=== PATIENT | male | born 1955 | race Caucasian/White ===

== ENCOUNTER 2018-02-24 12:45 | Inpatient (IN) | payer MEDICAID, SELFPAY ==
--- NOTE | 2018-02-24 12:12 | EKG12_ITS ---
Test Reason : Blood Pressure : / mmHG Vent. Rate : 123 BPM Atrial Rate : 123 BPM P-R Int : 148 ms QRS Dur : 136 ms QT Int : 326 ms P-R-T Axes : 007 027 115 degrees QTc Int : 466 ms Sinus tachycardia Non-specific intra-ventricular conduction block Abnormal ECG Confirmed by GADIEL BRO, CARMEN ([id number]), communications editor LYDIA YOUNG ([id number]) on 03/04/2018 1:47:55 PM Referred By: SERVANDO Confirmed By:CARMEN RAMESH MD
--- NOTE | 2018-02-24 13:30 | CT_ITS ---
STUDY: CT BRAIN WITHOUT CONTRAST REASON FOR EXAM: Male, 62 years old. Closed head injury. RADIATION DOSAGE (If Supplied By Facility): CTDIvol = ( 44.99 ) mGy, DLP = ( 711.75 ) mGycm TECHNIQUE: Transaxial CT imaging of the brain was performed without administration of intravenous contrast material. Multiplanar reformations are submitted for interpretation. Individualized dose optimization techniques were used for this CT. COMPARISON: Preliminary report is reviewed. FINDINGS: There is soft tissue emphysema within the soft tissues of the lateral scalp as well as the pterygopalatine fossa. This may be related to facial bone fracture. Normal calvarium. There is mild cerebral atrophy with widening of the extra-axial spaces and ventricular dilatation. Normal white matter tracts of the cerebral hemispheres. Normal basal ganglia and thalami. Normal brainstem. There is mild cerebellar atrophy. There is no intracranial hemorrhage. There are no findings of an acute ischemic infarction. Normal visualized paranasal sinuses. CT/Brain/Head without Contrast IMPRESSION: 1. Chronic involutional changes of the brain. 2. Soft tissue emphysema of the face and scalp may be the result of soft tissue injury or fracture. Electronically Signed: Mary Kay Zuluaga MD at 8:20 EDT , Service support ,
--- NOTE | 2018-02-24 13:30 | RAD_ITS ---
STUDY: X-RAY - PELVIS AND RIGHT HIP REASON FOR EXAM: Right hip pain, fall. TECHNIQUE: Radiological exam, hip, unilateral, with pelvis when performed; 2 or 3 views. COMPARISON: None. FINDINGS: There is vascular calcification. Normal bilateral iliac wings, sacroiliac joints and visualized sacrum. Normal bilateral superior and inferior pubic rami. Normal pubic symphysis. Normal bilateral ischial tuberosities. Normal visualized right femoral head. Normal right acetabulum. Normal right hip joint. RAD/Hip 2-3 Views with Pelvis IMPRESSION: No demonstrated right hip fracture. Electronically Signed: Shane Baker MD at 14:20 EDT Tel , Service support ,
--- NOTE | 2018-02-24 16:10 | CT_ITS ---
STUDY: CT RIGHT HIP WITHOUT CONTRAST REASON FOR EXAM: Male, 62 years old. Right-sided hip pain after injury. RADIATION DOSAGE (If Supplied By Facility): CTDIvol = ( 24.29 ) mGy, DLP = ( 1075.99 ) mGycm TECHNIQUE: Transaxial CT imaging of the hip was performed. Sagittal and coronal images were reconstructed. Individualized dose optimization techniques were used for this CT. COMPARISON: Preliminary report was reviewed. FINDINGS: Normal visualized femur. The right hip joint is within normal limits. Right-sided superior and inferior pubic rami are within normal limits. The visualized right iliac wing and sacrum have a normal appearance. There is grade 1 spondylolisthesis at L5-S1 secondary to spondylolysis of L5. There is narrowing of L5-S1 disc space with vacuum disc phenomenon and eburnation of endplates. There is soft tissue edema involving the right thigh and pelvis possibly secondary to anasarca. There is also abnormal attenuation within the visualized abdominal wall. There also appears to be some edema between the muscles of the thigh. There appears to be ascites within the pelvis. Patient has a Rey catheter. There are prostatic calcifications. There are colonic diverticula. CT/Extremity Lower without Contra IMPRESSION: 1. No CT evidence of acute fracture of the right hip. 2. Diffuse soft tissue edema probably related to anasarca. 3. Ascites. 4. Grade 1 spondylolisthesis at L5-S1 secondary to spondylolysis of L5 with degenerative disc disease at L5-S1. Electronically Signed: Mar yKay Zuluaga MD at 7:38 EDT , Service support ,
--- NOTE | 2018-02-24 17:41 | DT_ITS ---
This patient was seen during an EMR downtime February 21, 2018 - February 28, 2018. This patient may have a combination of paper and electronic documentation or all paper documentation. All documentation is viewable within the e-chart portion of [facility] for each patient visit.
--- NOTE | 2018-02-25 11:47 | ECHOD_ITS ---
Reason For Study: CHF Procedure This was a 2D Doppler, Color Flow transthoracic echocardiogram. Exam performed portable in patient room. Left Ventricle Moderately dilated left ventricle. The estimated ejection fraction is 15 %. Severe segmental systolic dysfunction (see wall motion). Transmitral diastolic flow velocities suggest severe (stage 3) diastolic dysfunction. Baldwin : Akinetic. Lateral Baldwin : Akinetic. Mid-anteroseptal : Akinetic. Basal anteroseptal: Akinetic. Lateral-Basal: Normal. Mid-Lateral : Hypokinetic. Atria The left atrium is mildly enlarged. Normal right atrium. Mitral Valve Bileaflet diffuse mitral valve thickening. Mild-Moderate (1-2+) eccentric mitral valve insufficiency. Tricuspid Valve Normal tricuspid valve. Mild to moderate (1-2+) tricuspid valve insufficiency. Pulmonary artery systolic pressure is 48 mmHg. Moderate pulmonary hypertension. Pulmonic Valve The pulmonic valve is not well visualized. Great Vessels Normal aortic root. The pulmonary artery is normal size. The inferior vena cava is dilated. Pericardium/Pleural No pericardial effusion. MMode/2D Measurements & Calculations LVIDd: 6.4 cm IVSd: 0.97 cm Ao root diam: 3.7 cm LVIDs: 5.9 cm LVPWd: 1.1 cm LA dimension: 4.7 cm RVDd: 3.8 cm FS: 8.4 % LAV(MOD-bp): 97.6 ml EDV(MOD-sp4): 177.0 ml SV(MOD-sp4): 53.5 ml LAV(MOD-bp) Indexed: 46.8 ml/m2 ESV(MOD-sp4): 123.5 ml LAV(MOD-sp2): 84.2 ml EF(MOD-sp4): 30.2 % LAV(MOD-sp4): 91.9 ml LA A4 area: 26.3 cm2 RA A4 area: 18.1 cm2 Doppler Measurements & Calculations MV E max roel: 95.6 cm/sec Lat Peak E' Roel: 4.8 cm/sec Med Peak E' Roel: 2.7 cm/sec MV A max roel: 41.6 cm/sec E/E' lat: 20.0 E/E' med: 35.2 MV E/A: 2.3 Ao V2 max: 90.7 cm/sec LV V1 max: 67.5 cm/sec PA V2 max: 79.1 cm/sec Ao max P.3 mmHg LV V1 max P.8 mmHg TR max roel: 328.8 cm/sec TR max P.3 mmHg Interpretation Summary Moderately dilated left ventricle. The estimated ejection fraction is 15 %. Severe segmental systolic dysfunction (see wall motion). Transmitral diastolic flow velocities suggest severe (stage 3) diastolic dysfunction Moderate pulmonary hypertension. Mild-Moderate (1-2+) eccentric mitral valve insufficiency. Ordering Physician: Lyubov Sanchez Referring Physician: [facility] Performed By: Davina Price RDCS
[2018-02-26 09:23] LABS: M R Staph aureus DNA By PCR Negative (Negative); Probe Check PASS; Specimen Processing Control PASS; Staph aureus DNA By PCR POSITIVE (Negative)
[2018-02-26 12:30] LABS: Bacteria 3+ /hpf (None Seen); Color, Urine Yellow (Yellow); Glucose, Dipstick NEGATIVE (Normal); Ketone-Dipstick Negative (Negative); Leukocyte Esterase-Dipstick 25 /ul (Negative); Nitrite-Dipstick Negative (Negative); Occult Blood-Urine 150 /ul (Negative); Protein-Dipstick 500 mg/dl (Negative); Red Blood Cells-Urine 5-10 SEEN /hpf (0-5); Squamous Epithelial Cells - UA 0-5 SEEN /hpf (0-5); Urine Bilirubin Dipstick 1 mg/dL (Negative); Urine Clarity Cloudy (Clear); Urine Urobilinogen 1 mg/dl (Normal); White Blood Cells 5-10 SEEN /hpf (0-5)
[2018-02-26 12:31] LABS: Hyaline Cast 5-10 SEEN /lpf (0-5); Mucous, Urine 2+ /hpf (<or=2+)
[2018-02-26 14:16] LABS: Anion Gap 6 (5-15); BUN 40 mg/dL (7-18); Calcium,Total 8.5 mg/dL (8.5-10.1); Chloride 98 mmol/L (98-107); Creatinine, Serum 1.38 mg/dL (0.70-1.30); EST Glomerular Filtration Rate 56 mL/min (>60); Est Glom Filt Rate - Afr Amer 68 mL/min (>60); Glucose 237 mg/dL (74-106); Potassium 4.9 mmol/L (3.5-5.1); Sodium Level 138 mmol/L (136-145)
[2018-02-27 07:38] LABS: Erythrocyte Sedimentation Rate 94 mm/hr (0-20)
--- NOTE | 2018-02-27 08:22 | RAD_ITS ---
STUDY: X-RAY CHEST REASON FOR EXAM: Male, 62 years old. Chest pain, fever and shortness of breath. TECHNIQUE: Two AP portable views of the chest. COMPARISON: November 08, 2013. FINDINGS: Patient has left-sided intracardiac pacemaker. Cardiac monitoring leads are present. The lungs are expanded. There are prominent bronchovascular markings in both lungs. There are small bilateral pleural effusions. There is mild cardiac enlargement. Normal mediastinum and trent. There is prominence of the pulmonary hilar arteries with peripheral pulmonary vascular congestion. There is atherosclerotic calcification of the aortic arch with tortuosity. Normal visualized thoracic spine. Normal visualized ribs, clavicles, and shoulders. There is no demonstrated abnormality of the visualized soft tissue structures of the upper abdomen. RAD/Chest 1 View IMPRESSION: Pulmonary congestion with pleural effusions. Electronically Signed: Mary Kay Zuluaga MD at 9:00 EDT , Service support ,
--- NOTE | 2018-02-27 12:03 | EKG12_ITS ---
Test Reason : SOB Blood Pressure : / mmHG Vent. Rate : 080 BPM Atrial Rate : 080 BPM P-R Int : 164 ms QRS Dur : 114 ms QT Int : 398 ms P-R-T Axes : -02 -43 139 degrees QTc Int : 459 ms Atrial-sensed ventricular-paced rhythm Biventricular pacemaker detected Abnormal ECG Confirmed by ANDREI BRO, BAILEE ([id number]), slot editor LYDIA YOUNG ([id number]) on 03/02/2018 5:29:07 PM Referred By: USHA Confirmed By:BAILEE FORBES MD
[2018-02-27 12:48] LABS: Anion Gap 6 (5-15); BUN 37 mg/dL (7-18); BUN/Creat Ratio 33.9 RATIO (10-20); Calcium,Total 8.3 mg/dL (8.5-10.1); Chloride 98 mmol/L (98-107); Creatinine, Serum 1.09 mg/dL (0.70-1.30); EST Glomerular Filtration Rate 73 mL/min (>60); Est Glom Filt Rate - Afr Amer 88 mL/min (>60); Glucose 84 mg/dL (74-106); Magnesium 1.6 mg/dL (1.6-2.6); Potassium 3.9 mmol/L (3.5-5.1); Sodium Level 141 mmol/L (136-145)
[2018-02-27 14:04] LABS: Hematocrit 45.7 % (40-54); Hemoglobin 14.5 g/dl (13.0-16.5); Mean Corp Hgb Conc 31.7 g/gl (32-36); Mean Corpuscular Volume 97.6 fL (80-94); Platelet Count 167 K/mm3 (150-450); RBC Distribution Width CV 16.1 % (11.6-14.6); RBC Distribution Width SD 56.9 fl (35.1-43.9); Red Blood Count 4.68 M/mm3 (4.6-6.2); White Blood Count 10.3 K/mm3 (4.4-11.0)
[2018-02-27 14:05] LABS: Absolute Lymphocyte Count 0.89 X10^3/ul (0.83-4.51); Absolute Neutrophil Count 8.6 X10^3/uL (2.0-7.7); Basophil# 0.01 X10^3/uL; Basophil% 0.1 % (0-1); Eosinophil# 0.04 X10^3/uL; Eosinophils% 0.4 % (0-5); Lymphocyte # 0.89 X10^3/ul (4.0); Lymphocyte % 8.6 % (19-41); Monocyte# 0.74 X10^3/uL; Monocyte% 7.2 % (0-10); Neutrophil % 83.4 % (47-70); POSITIVE COUNT NO; POSITIVE DIFFERENTIAL NO; POSITIVE MORPHOLOGY NO
[2018-02-27 14:06] LABS: International Normalized Ratio 1.3; Prothrombin Time (Protime)PT. 16.5 SECONDS (11.7-14.9)
[2018-02-28] VITALS (9 sets, daily range): BP systolic 98–120; BP diastolic 61–75; PULSE 77–102; RESP 16–18; TEMP 36.6–36.7; O2SAT 93–97
[2018-02-28] MEDS: Furosemide 500 MG in Empty Viaflex 50 mL 1 EACH CONT INF (04:00)
[2018-02-28] MEDS: Gabapentin 300 MG Capsule PO ×3 (06:40→22:46)
[2018-02-28] MEDS: Nystatin Powder 15gm Bottle 1 APPLIC TOPICAL ×3 (06:40→22:46)
[2018-02-28 07:26] LABS: Anion Gap 5 (5-15); BUN 35 mg/dL (7-18); BUN/Creat Ratio 33.3 RATIO (10-20); Calcium,Total 8.3 mg/dL (8.5-10.1); Chloride 95 mmol/L (98-107); Creatinine, Serum 1.05 mg/dL (0.70-1.30); EST Glomerular Filtration Rate 76 mL/min (>60); Est Glom Filt Rate - Afr Amer 92 mL/min (>60); Glucose 84 mg/dL (74-106); Magnesium 1.7 mg/dL (1.6-2.6); Potassium 3.6 mmol/L (3.5-5.1); Sodium Level 141 mmol/L (136-145)
[2018-02-28] MEDS: Magnesium Oxide 400 MG Tablet PO ×2 (09:20→22:49)
[2018-02-28] MEDS: Famotidine 20 MG Tablet PO ×2 (09:20→22:48)
[2018-02-28] MEDS: Fluconazole 100 MG Tablet PO (09:20)
[2018-02-28] MEDS: Carvedilol 6.25 MG Tablet PO ×2 (09:20→22:48)
[2018-02-28] MEDS: Metolazone 2.5 MG Tablet PO (09:20)
[2018-02-28] MEDS: levoFLOXacin IV 500 MG/100 ML BAG 100 MG IV (09:20)
[2018-02-28] MEDS: Venlafaxine XR 37.5 MG Capsule PO (09:20)
[2018-02-28 13:31] LABS: Bedside Glucose 142 mg/dL (70-110)
--- NOTE | 2018-02-28 13:49 | CASEMGMT ---
SW spoke with patient as per physician patient agreed he needs to go somewhere for rehab. He does not have a copy of his insurance card and no one is able to bring it in as he keeps it in his safe deposit box. He had no preference for [facility], he was okay with [facility] as it is the closest to his home. ALLYSON called [facility] and obtained patient's ID #[id number]. [facility] Await response from [facility]. Tiffany NIX MSW
[2018-02-28] MEDS: 0.9% NaCl Peripheral Flush Adult/Peds IV (15:03)
[2018-02-28 16:08] LABS: Hematocrit 49.2 % (40-54); Hemoglobin 14.6 g/dl (13.0-16.5); Mean Corp Hgb Conc 29.7 g/gl (32-36); Mean Corpuscular Hgb 30.4 pg (27.0-32.0); Mean Corpuscular Volume 102.5 fL (80-94); White Blood Count 8.8 K/mm3 (4.4-11.0)
[2018-02-28 16:09] LABS: Eosinophils% 0.2 % (0-5); Lymphocyte % 7.5 % (19-41); Mean Platelet Vol. 11.5 fl (6.2-12.0); Monocyte% 8.1 % (0-10); Neutrophil # 7.38 X10^3/uL (2.7-7.7); POSITIVE COUNT NO; POSITIVE DIFFERENTIAL NO; POSITIVE MORPHOLOGY NO; Platelet Count 164 K/mm3 (150-450); RBC Distribution Width SD 60.4 fl (35.1-43.9)
[2018-02-28 16:10] LABS: Absolute Lymphocyte Count 0.66 X10^3/ul (0.83-4.51); Absolute Neutrophil Count 7.4 X10^3/uL (2.0-7.7); Eosinophil# 0.02 X10^3/uL; Erythrocyte Sedimentation Rate 96 mm/hr (0-20); Lymphocyte # 0.66 X10^3/ul (4.0); Monocyte# 0.71 X10^3/uL
--- NOTE | 2018-02-28 17:30 | NURSING ---
IV site to left hand with Magnesium infusing remains patent but is leaking at this time. Infusion stopped. IV adjusted but continues to leak. IV removed. Will place new IV. Patient denies pain at site. Denies other needs.
[2018-02-28 18:05] LABS: Bedside Glucose 149 mg/dL (70-110)
[2018-02-28 22:05] LABS: AST(SGOT) 15 U/L (15-37); Alanine Aminotransfer ALT/SGPT 22 U/L (16-61); Albumin, Serum 1.7 g/dL (3.2-5.0); Alkaline Phosphatase 222 U/L (45-117); BUN 43 mg/dL (7-18); BUN/Creat Ratio 30.7 RATIO (10-20); Calcium,Total 8.2 mg/dL (8.5-10.1); EST Glomerular Filtration Rate 55 mL/min (>60); Est Glom Filt Rate - Afr Amer 67 mL/min (>60); Globulin 5.3 g/dL (2.2-4.2); Glucose 242 mg/dL (74-106)
[2018-02-28 22:06] LABS: Anion Gap 8 (5-15); Bilirubin, Direct 0.41 mg/dL (0.00-0.30); Chloride 98 mmol/L (98-107); Cholesterol 77 mg/dL (200); High Density Lipoprotein 36 mg/dL; Magnesium 1.8 mg/dL (1.6-2.6); Sodium Level 138 mmol/L (136-145); Triglycerides 89 mg/dL; Very Low Density Lipoprotein 18 mg/dL (5-40)
[2018-02-28] MEDS: oxyCODONE 5 MG Tablet PO (22:45)
[2018-02-28] MEDS: Insulin Lispro 100 UNIT/ML INSULN.PEN SC (22:46)
[2018-02-28] MEDS: Atorvastatin Calcium 40 MG Tablet PO (22:49)
[2018-02-28] MEDS: Albuterol 2.5 MG/3 ML VIAL.NEB. INHALATION (22:52)
[2018-02-28 23:00] LABS: Bedside Glucose 175 mg/dL (70-110)
[2018-03-01] VITALS (13 sets, daily range): BP systolic 108–126; BP diastolic 68–76; PULSE 71–97; RESP 16–18; TEMP 36.6–36.7; O2SAT 86–98
[2018-03-01 00:59] LABS: Hemoglobin A1c 8.7 % (4.2-6.3)
[2018-03-01 01:06] LABS: Phosphorus 3.9 mg/dL (2.5-4.9)
[2018-03-01 06:01] LABS: Absolute Lymphocyte Count 1.12 X10^3/ul (0.83-4.51); Absolute Neutrophil Count 5.5 X10^3/uL (2.0-7.7); Basophil# 0.01 X10^3/uL; Basophil% 0.1 % (0-1); Eosinophil# 0.07 X10^3/uL; Hematocrit 45.4 % (40-54); Hemoglobin 13.8 g/dl (13.0-16.5); Lymphocyte # 1.12 X10^3/ul (4.0); Lymphocyte % 15.3 % (19-41); Mean Corp Hgb Conc 30.4 g/gl (32-36); Mean Corpuscular Volume 98.7 fL (80-94); Mean Platelet Vol. 10.3 fl (6.2-12.0); Monocyte% 8.2 % (0-10); Neutrophil # 5.52 X10^3/uL (2.7-7.7); Neutrophil % 75.1 % (47-70); Platelet Count 136 K/mm3 (150-450); RBC Distribution Width CV 15.6 % (11.6-14.6); RBC Distribution Width SD 56.3 fl (35.1-43.9); White Blood Count 7.3 K/mm3 (4.4-11.0)
[2018-03-01 06:11] LABS: POSITIVE COUNT NO; POSITIVE DIFFERENTIAL NO; POSITIVE MORPHOLOGY NO
[2018-03-01 06:55] LABS: Bedside Glucose 145 mg/dL (70-110)
--- NOTE | 2018-03-01 06:58 | PCM.PN.HOSP ---
Subjective: And examined. No new complaints. No acute events overnight. Remains on the Lasix drip. Denies any dizziness or palpitations or chest pain. Right lower extremity edema is getting better. Vitals/I&O's: Vital Signs Temp Pulse Resp BP Pulse Ox 98.0 F 97 16 126/68 H 95 03/01/18 03:10 03/01/18 03:10 03/01/18 03:10 03/01/18 03:10 03/01/18 03:10 Oxygen Flow Rate (L/min) 2 Oxygen Delivery Method Room Air Weight: 104.4 kg Intake and Output for Last 24 Hours 02/27/18 02/28/18 03/01/18 23:59 23:59 23:59 Intake Total 997.1 / 997.1 128 / 128 Output Total 5600 / 5600 1250 / 1250 Balance -4602.9 / -4602.9 -1122 / -1122 General: Alert, Oriented x3, Cooperative, No apparent distress HEENT: Atraumatic, PERRLA, EOMI, Normocephalic Oral: Moist Mucosa Neck: Supple Lungs: Clear to auscultation, Normal air movement Cardiovascular: Regular rate, Regular Rhythm, Normal S1, Normal S2, No murmurs Abdomen: Bowel Sounds Present, Soft, Non Tender, Non-Distended, No Hepato-splenomegaly Extremities: Edema - Lower leg +2 edema, Oscar wrap, left BKA, chronic wounds are all intact. Skin: No rashes, No breakdown Musculoskeletal: No Tenderness to Palpation of Joints or Extremities Lymphatic: No Cervical, Supraclavicular, or Inguinal Adenopathy Neurological: Cranial nerves II-XII grossly intact, Neuro grossly intact Psych/Mental Status: Normal Affect, Appropriate Microbiology Past 72 Hours 02/27/18 10:50 Urine Catheter - Rey Urine Culture - Preliminary GNR Poss Pseudomonas sp 02/25/18 01:00 Wound - Leg, Right Gram Stain - Final 02/25/18 01:00 Wound - Leg, Right Wound Culture - Final Enterobacter cloacae complex Staphylococcus aureus Laboratory Results 02/25/18 01:05: Hemoglobin A1c 8.7 H 02/25/18 01:05: B-Natriuretic Peptide 4132.0 H 02/25/18 01:05: Phosphorus 3.9, Troponin I < 0.015, C-React Prot Ext Range 108.00 H 02/25/18 04:40: Troponin I < 0.015 02/25/18 07:30: Sodium 138, Potassium 5.0, Chloride 98, Carbon Dioxide 32.0, Anion Gap 8, BUN 43 H, Creatinine 1.40 H, Est GFR (MDRD) Af Amer 67, Est GFR (MDRD) Non-Af 55 L, BUN/Creatinine Ratio 30.7 H, Glucose 242 H, Calcium 8.2 L, Magnesium 1.8, Total Bilirubin 0.60, Direct Bilirubin 0.41 H, AST 15, ALT 22, Alkaline Phosphatase 222 H, Troponin I < 0.015, Total Protein 7.0, Albumin 1.7 L, Globulin 5.3 H, Triglycerides 89, Cholesterol 77, LDL Cholesterol 23, VLDL Cholesterol 18, HDL Cholesterol 36 L 02/25/18 : WBC 8.8, RBC 4.80, Hgb 14.6, Hct 49.2, MCV 102.5 H, MCH 30.4, MCHC 29.7 L, RDW 16.0 H, RDW Differential 60.4 H, Plt Count 164, MPV 11.5, Immature Gran % (Auto) 0.200, Neut % (Auto) 84.0 H, Lymph % (Auto) 7.5 L, [place] % (Auto) 8.1, Eos % (Auto) 0.2, Baso % (Auto) 0.0, Absolute Neuts (auto) 7.4, Absolute Lymphs (auto) 0.66 L, Total Counted Not Reportable, ESR 96 H 02/28/18 05:10: Sodium 141, Potassium 3.6, Chloride 95 L, Carbon Dioxide 41.0 H, Anion Gap 5, BUN 35 H, Creatinine 1.05, Est GFR (MDRD) Af Amer 92, Est GFR (MDRD) Non-Af 76, BUN/Creatinine Ratio 33.3 H, Glucose 84, Calcium 8.3 L, Magnesium 1.7 02/28/18 12:01: POC Glucose 142 H 02/28/18 17:15: POC Glucose 149 H 02/28/18 22:18: POC Glucose 175 H 03/01/18 05:30: WBC 7.3, RBC 4.60, Hgb 13.8, Hct 45.4, MCV 98.7 H, MCH 30.0, MCHC 30.4 L, RDW 15.6 H, RDW Differential 56.3 H, Plt Count 136 L, MPV 10.3, Immature Gran % (Auto) 0.300, Neut % (Auto) 75.1 H, Lymph % (Auto) 15.3 L, [place] % (Auto) 8.2, Eos % (Auto) 1.0, Baso % (Auto) 0.1, Absolute Neuts (auto) 5.5, Absolute Lymphs (auto) 1.12, Total Counted Not Reportable 03/01/18 06:47: POC Glucose 145 H Current Medications Acetaminophen (Tylenol) 650 mg PO Q4H PRN PRN PRN Reason: PAIN/FEVER Al Hydroxide/Mg Hydroxide (Mylanta Ii) 30 ml PO Q6H PRN PRN PRN Reason: DYSPEPSIA Albuterol Sulfate (Ventolin Aerosols) 2.5 mg INHALATION Q2H PRN PRN PRN Reason: DYSPNEA/WHEEZING Last Admin: 02/28/18 22:52 Dose: 2.5 mg Atorvastatin Calcium (Lipitor) 40 mg PO QHS [facility] Last Admin: 02/28/18 22:49 Dose: 40 mg Carvedilol (Coreg) 6.25 mg PO BID [facility] Last Admin: 02/28/18 22:48 Dose: 6.25 mg Dextrose (D50w Syringe) 0 gm IV X1 PRN; Protocol PRN Reason: Hypoglycemia Enoxaparin Sodium (Lovenox) 40 mg SC DAILY [facility] Famotidine (Pepcid) 20 mg PO BID [facility] Last Admin: 02/28/18 22:48 Dose: 20 mg Fluconazole (Diflucan) 100 mg PO DAILY [facility] Stop: 03/01/18 10:01 Last Admin: 02/28/18 13:07 Dose: Not Given Gabapentin (Neurontin) 300 mg PO TID [facility] Last Admin: 02/28/18 22:46 Dose: 300 mg Glucagon () 1 mg IM .X1 PRN PRN Reason: Hypoglycemia Furosemide 500 mg/ N/A 50 mls @ 1 mls/hr CONT INF .Q50H DAVON PRN Reason: 10 MG/HR Last Admin: 02/28/18 13:07 Dose: Not Given Levofloxacin (Levaquin Iv) 500 mg in 100 mls @ 100 mls/hr IV Q24 [facility] Last Admin: 02/28/18 13:03 Dose: Not Given Insulin Detemir (Levemir (Bkc)) 7 units SC DAILY [facility] Last Admin: 02/28/18 13:04 Dose: Not Given Insulin Detemir (Levemir (Bkc)) 10 units SC QHS [facility] Last Admin: 02/28/18 22:47 Dose: 10 units Insulin Human Lispro (Humalog Kwikpen (Bk)) 0 unit SC ACHS [facility] PRN Reason: Protocol Last Admin: 02/28/18 22:46 Dose: 1 unit Magnesium Oxide (Mag-Ox 400) 400 mg PO BID [facility] Last Admin: 02/28/18 22:49 Dose: 400 mg Metolazone (Zaroxolyn) 2.5 mg PO DAILY [facility] Nicotine (Nicoderm Cq ([facility])) 21 mg TRANSDERM. DAILY [facility] Last Admin: 02/28/18 13:08 Dose: Not Given Nitroglycerin (Nitrostat) 0.4 mg SUBLINGUAL Q5M PRN PRN Reason: CARDIAC/CHEST PAIN Nystatin (Mycostatin Powder) 1 applic TOPICAL TID [facility] Last Admin: 02/28/18 22:46 Dose: 1 applic Ondansetron HCl (Zofran) 4 mg IV Q6H PRN PRN PRN Reason: NAUSEA Oxycodone HCl (Oxyir) 5 - 10 mg PO Q4H PRN PRN PRN Reason: MILD-MODERATE PAIN Last Admin: 02/28/18 22:45 Dose: 5 mg Sodium Chloride () 5 - 30 ml IV UD PRN PRN Reason: SALINE FLUSH Last Admin: 02/28/18 15:03 Dose: 10 ml Venlafaxine HCl (Effexor Xr) 37.5 mg PO DAILY [facility] Last Admin: 02/28/18 13:03 Dose: Not Given Medical Necessity - Tobacco Use Smoking Status: Current every day smoker Assessment/Plan 62y/o male with multiple comorbidities treated on 0 02/24/2018 with right hip pain. 1. Hypomagnesemia secondary to IV Lasix therapy, replaced 2. Enterobacter/MSSA cellulitis of the right lower extremity with nonhealing diabetic and ischemic ulcers, on IV levaquin(day 6 of antibiotics), will aim for 10 days total. 3. Acute on chronic biventricular CHF secondary to ischemic cardiomyopathy, EF 10-15%, admitting BNP was more than 4000, remains on lasix drip and metalozone, with good effect, is more than 5 L, will continue on Lasix drip and switch to oral Lasix from tomorrow, labs in a.m. 4. PAD status post stenting left lower extremity, status post left BKA, on aspirin, statin, 5. Pulmonary hypertension/CAD/AICD 6. Depression, Effexor 7. Type II DM with peripheral neuropathy, controlled, continue on insulin with Accu-Cheks and insulin sliding scale 8. DVT ppx -Lovenox subcu 9. Disposition: Possible discharge to custodial facility on . Code Visit Inpatient E&M: 98356 Subs Hosp L2
[2018-03-01] MEDS: Gabapentin 300 MG Capsule PO ×3 (07:22→22:09)
[2018-03-01] MEDS: Nystatin Powder 15gm Bottle 1 APPLIC TOPICAL ×3 (07:22→22:07)
[2018-03-01 08:44] LABS: Bedside Glucose 144 mg/dL (70-110)
[2018-03-01] MEDS: Famotidine 20 MG Tablet PO ×2 (09:22→22:09)
[2018-03-01] MEDS: Venlafaxine XR 37.5 MG Capsule PO (09:22)
[2018-03-01] MEDS: Magnesium Oxide 400 MG Tablet PO ×2 (09:22→22:09)
[2018-03-01] MEDS: Metolazone 2.5 MG Tablet PO (09:22)
[2018-03-01] MEDS: Aspirin 81 MG TAB.CHEW PO (09:23)
[2018-03-01] MEDS: Enoxaparin 40 MG/0.4 ML Syringe SC (09:23)
[2018-03-01] MEDS: Fluconazole 100 MG Tablet PO (09:23)
[2018-03-01] MEDS: Carvedilol 6.25 MG Tablet PO ×2 (09:23→22:08)
[2018-03-01] MEDS: levoFLOXacin IV 500 MG/100 ML BAG 100 MG IV (09:23)
--- NOTE | 2018-03-01 09:38 | CASEMGMT ---
ALLYSON spoke with Jennifer at [facility] and she asked if this would be short term ALLYSON told her that is the plan. She will have the staff review it and get back to ALLYSON. Tiffany NIX MSW
[2018-03-01 09:57] LABS: Anion Gap 6 (5-15); BUN 41 mg/dL (7-18); BUN/Creat Ratio 36.6 RATIO (10-20); Calcium,Total 8.2 mg/dL (8.5-10.1); Chloride 100 mmol/L (98-107); Creatinine, Serum 1.12 mg/dL (0.70-1.30); EST Glomerular Filtration Rate 71 mL/min (>60); Est Glom Filt Rate - Afr Amer 86 mL/min (>60); Glucose 124 mg/dL (74-106); Magnesium 1.7 mg/dL (1.6-2.6); Potassium 4.5 mmol/L (3.5-5.1); Sodium Level 140 mmol/L (136-145)
--- NOTE | 2018-03-01 10:50 | CASEMGMT ---
ALLYSON received a call from Jennifer at [facility] and they will accept patient. She will start the pre-cert. She is aware he needs a low air loss mattress. ALLYSON notified patient and his family that [facility] will accept him and we will need to wait on insurance approval. Plan: [facility] [place] [facility] pending insurance approval. Tiffany THURMAN
[2018-03-01] MEDS: Insulin Lispro 100 UNIT/ML INSULN.PEN SC ×2 (11:10→22:06)
[2018-03-01 11:25] LABS: Bedside Glucose 203 mg/dL (70-110)
[2018-03-01 11:56] LABS: Bacteria 0 SEEN /hpf (None Seen); Mucous, Urine 0 SEEN /hpf (<or=2+); Squamous Epithelial Cells - UA 0 SEEN /hpf (0-5)
[2018-03-01 13:06] LABS: Color, Urine Yellow (Yellow); Urine Clarity Clear (Clear)
[2018-03-01 13:07] LABS: Glucose, Dipstick NEGATIVE (Normal); Ketone-Dipstick Negative (Negative); Leukocyte Esterase-Dipstick 500 /ul (Negative); Nitrite-Dipstick Negative (Negative); Occult Blood-Urine 150 /ul (Negative); Protein-Dipstick 30 mg/dl (Negative); Urine Bilirubin Dipstick Negative (Negative); Urine Urobilinogen Normal (Normal)
[2018-03-01 13:08] LABS: Red Blood Cells-Urine 0-5 SEEN /hpf (0-5); White Blood Cells 10-25 SEEN /hpf (0-5)
[2018-03-01 16:13] LABS: Bedside Glucose 129 mg/dL (70-110)
[2018-03-01 16:14] LABS: Bedside Glucose 85 mg/dL (70-110)
[2018-03-01 16:16] LABS: Bedside Glucose 76 mg/dL (70-110)
[2018-03-01 16:17] LABS: Bedside Glucose 66 mg/dL (70-110)
[2018-03-01 16:40] LABS: Bedside Glucose 129 mg/dL (70-110)
[2018-03-01 17:54] LABS: Eosinophils% 0.9 % (0-5); Hematocrit 43.1 % (40-54); Hemoglobin 13.6 g/dl (13.0-16.5); Lymphocyte % 11.8 % (19-41); Mean Corp Hgb Conc 31.6 g/gl (32-36); Mean Corpuscular Hgb 31.3 pg (27.0-32.0); Mean Corpuscular Volume 99.1 fL (80-94); Mean Platelet Vol. 10.7 fl (6.2-12.0); Monocyte% 10.3 % (0-10); Neutrophil % 76.7 % (47-70); POSITIVE COUNT NO; POSITIVE DIFFERENTIAL NO; POSITIVE MORPHOLOGY NO; Platelet Count 134 K/mm3 (150-450); RBC Distribution Width CV 15.6 % (11.6-14.6); RBC Distribution Width SD 55.3 fl (35.1-43.9); Red Blood Count 4.35 M/mm3 (4.6-6.2); White Blood Count 8.6 K/mm3 (4.4-11.0)
[2018-03-01 17:55] LABS: Absolute Lymphocyte Count 1.02 X10^3/ul (0.83-4.51); Absolute Neutrophil Count 6.6 X10^3/uL (2.0-7.7); Basophil# 0.01 X10^3/uL; Basophil% 0.1 % (0-1); Eosinophil# 0.08 X10^3/uL; Lymphocyte # 1.02 X10^3/ul (4.0); Monocyte# 0.89 X10^3/uL; Neutrophil # 6.59 X10^3/uL (2.7-7.7)
[2018-03-01] MEDS: Albuterol 2.5 MG/3 ML VIAL.NEB. INHALATION (21:13)
[2018-03-01] MEDS: Atorvastatin Calcium 40 MG Tablet PO (22:08)
[2018-03-01 22:20] LABS: Bedside Glucose 151 mg/dL (70-110)
[2018-03-02] VITALS (12 sets, daily range): BP systolic 101–110; BP diastolic 65–70; PULSE 61–98; RESP 16; TEMP 36.3–36.6; O2SAT 92–98
[2018-03-02] MEDS: oxyCODONE 5 MG Tablet PO ×2 (00:19→12:10)
[2018-03-02] MEDS: Acetaminophen 325 MG Tablet 650 MG PO (01:08)
[2018-03-02] MEDS: Nystatin Powder 15gm Bottle 1 APPLIC TOPICAL ×3 (05:46→21:42)
[2018-03-02] MEDS: Gabapentin 300 MG Capsule PO ×3 (05:46→21:42)
[2018-03-02 06:51] LABS: Bedside Glucose 101 mg/dL (70-110)
[2018-03-02 06:54] LABS: BUN 36 mg/dL (7-18); BUN/Creat Ratio 45.2 RATIO (10-20); Calcium,Total 8.2 mg/dL (8.5-10.1); Carbon Dioxide > 45.0 mmol/L (21.0-32.0); Chloride 89 mmol/L (98-107); EST Glomerular Filtration Rate 105 mL/min (>60); Est Glom Filt Rate - Afr Amer 127 mL/min (>60); Glucose 105 mg/dL (74-106); Magnesium 1.5 mg/dL (1.6-2.6); Potassium 2.8 mmol/L (3.5-5.1); Sodium Level 140 mmol/L (136-145)
[2018-03-02] MEDS: Magnesium Oxide 400 MG Tablet PO ×2 (09:30→21:41)
[2018-03-02] MEDS: Famotidine 20 MG Tablet PO ×2 (09:30→21:42)
[2018-03-02] MEDS: Carvedilol 6.25 MG Tablet PO ×2 (09:31→21:41)
[2018-03-02] MEDS: Aspirin 81 MG TAB.CHEW PO (09:31)
[2018-03-02] MEDS: Venlafaxine XR 37.5 MG Capsule PO (09:31)
[2018-03-02] MEDS: 0.9% NaCl Peripheral Flush Adult/Peds IV (09:31)
[2018-03-02] MEDS: levoFLOXacin IV 500 MG/100 ML BAG 100 MG IV (09:31)
[2018-03-02] MEDS: Enoxaparin 40 MG/0.4 ML Syringe SC (09:31)
[2018-03-02] MEDS: Metolazone 2.5 MG Tablet PO (09:32)
[2018-03-02] MEDS: Furosemide 40 MG Tablet PO ×2 (10:59→17:19)
[2018-03-02 11:16] LABS: Bedside Glucose 114 mg/dL (70-110)
--- NOTE | 2018-03-02 11:45 | PCM.PN.HOSP ---
Subjective: Patient was seen and examined. No new complains. Denies chest pain, dizziness, palpitations. Awaiting transfer to SNF. Objective: Physical exam: General: Alert, Oriented x3, Cooperative, No apparent distress HEENT: Atraumatic, PERRLA, EOMI, Normocephalic Oral: Moist Mucosa Neck: Supple Lungs: Clear to auscultation, Normal air movement Cardiovascular: Regular rate, Regular Rhythm, Normal S1, Normal S2, No murmurs Abdomen: Bowel Sounds Present, Soft, Non Tender, Non-Distended, No Hepato-splenomegaly Extremities: Edema - Lower leg +2 edema, Oscar wrap, left BKA, chronic wounds are all intact. Skin: No rashes, No breakdown Musculoskeletal: No Tenderness to Palpation of Joints or Extremities Lymphatic: No Cervical, Supraclavicular, or Inguinal Adenopathy Neurological: Cranial nerves II-XII grossly intact, Neuro grossly intact Psych/Mental Status: Normal Affect, Appropriate Vitals/I&O's: Vital Signs Temp Pulse Resp BP Pulse Ox 97.6 F L 64 16 101/65 97 03/02/18 09:25 03/02/18 11:10 03/02/18 09:25 03/02/18 09:25 03/02/18 09:25 Oxygen Flow Rate (L/min) 2 Oxygen Delivery Method Nasal Cannula Weight: 104.4 kg Intake and Output for Last 24 Hours 02/28/18 03/01/18 03/02/18 23:59 23:59 23:59 Intake Total 997.1 / 997.1 1136.4 / 1136.4 185 / 185 Output Total 5600 / 5600 3475 / 3475 925 / 925 Balance -4602.9 / -4602.9 -2338.6 / -2338.6 -740 / -740 Microbiology Past 72 Hours 02/27/18 10:50 Urine Catheter - Rey Urine Culture - Final Pseudomonas aeroginosa 02/25/18 01:00 Wound - Leg, Right Gram Stain - Final 02/25/18 01:00 Wound - Leg, Right Wound Culture - Final Enterobacter cloacae complex Staphylococcus aureus Laboratory Results 02/26/18 06:55: POC Glucose 129 H 02/26/18 11:45: POC Glucose 85 02/26/18 16:15: POC Glucose 76 02/26/18 21:09: POC Glucose 66 L 02/26/18 : WBC 8.6, RBC 4.35 L, Hgb 13.6, Hct 43.1, MCV 99.1 H, MCH 31.3, MCHC 31.6 L, RDW 15.6 H, RDW Differential 55.3 H, Plt Count 134 L, MPV 10.7, Immature Gran % (Auto) 0.200, Neut % (Auto) 76.7 H, Lymph % (Auto) 11.8 L, [place] % (Auto) 10.3 H, Eos % (Auto) 0.9, Baso % (Auto) 0.1, Absolute Neuts (auto) 6.6, Absolute Lymphs (auto) 1.02, Total Counted Not Reportable 02/27/18 00:25: Urine Color Yellow, Urine Clarity Clear, Urine pH 6.0, Ur Specific [place] 1.010, Urine Protein 30 H, Urine Glucose (UA) NEGATIVE, Urine Ketones Negative, Urine Occult Blood 150 H, Urine Nitrite Negative, Urine Bilirubin Negative, Urine Urobilinogen Normal, Ur Leukocyte Esterase 500 H, Urine RBC 0-5 SEEN, Urine WBC 10-25 SEEN, Ur Squamous Epith Cells 0 SEEN, Urine Bacteria 0 SEEN, Urine Mucus 0 SEEN 03/01/18 16:35: POC Glucose 129 H 03/01/18 21:58: POC Glucose 151 H 03/02/18 05:55: Sodium 140, Potassium 2.8 L, Chloride 89 L, Carbon Dioxide > 45.0 H*, Anion Gap TNP, BUN 36 H, Creatinine 0.80, Est GFR (MDRD) Af Amer 127, Est GFR (MDRD) Non-Af 105, BUN/Creatinine Ratio 45.2 H, Glucose 105, Calcium 8.2 L, Magnesium 1.5 L 03/02/18 06:44: POC Glucose 101 03/02/18 11:05: POC Glucose 114 H Current Medications Acetaminophen (Tylenol) 650 mg PO Q4H PRN PRN PRN Reason: PAIN/FEVER Last Admin: 03/02/18 01:08 Dose: 650 mg Al Hydroxide/Mg Hydroxide (Mylanta Ii) 30 ml PO Q6H PRN PRN PRN Reason: DYSPEPSIA Albuterol Sulfate (Ventolin Aerosols) 2.5 mg INHALATION Q2H PRN PRN PRN Reason: DYSPNEA/WHEEZING Last Admin: 03/01/18 21:13 Dose: 2.5 mg Aspirin (Aspirin, Baby) 81 mg PO DAILY@0800 [facility] Last Admin: 03/02/18 09:31 Dose: 81 mg Atorvastatin Calcium (Lipitor) 40 mg PO QHS [facility] Last Admin: 03/01/18 22:08 Dose: 40 mg Carvedilol (Coreg) 6.25 mg PO BID [facility] Last Admin: 03/02/18 09:31 Dose: 6.25 mg Dextrose (D50w Syringe) 0 gm IV X1 PRN; Protocol PRN Reason: Hypoglycemia Enoxaparin Sodium (Lovenox) 40 mg SC DAILY [facility] Last Admin: 03/02/18 09:31 Dose: 40 mg Famotidine (Pepcid) 20 mg PO BID [facility] Last Admin: 03/02/18 09:30 Dose: 20 mg Furosemide (Lasix) 40 mg PO BID@1000,1800 [facility] Last Admin: 03/02/18 10:59 Dose: 40 mg Gabapentin (Neurontin) 300 mg PO TID [facility] Last Admin: 03/02/18 05:46 Dose: 300 mg Glucagon () 1 mg IM .X1 PRN PRN Reason: Hypoglycemia Levofloxacin (Levaquin Iv) 500 mg in 100 mls @ 100 mls/hr IV Q24 [facility] Last Admin: 03/02/18 09:31 Dose: 100 mls/hr Potassium Chloride 10 meq/ (Sodium Chloride) 105 mls @ 100 mls/hr IV BOLUS Q1H [facility] Stop: 03/02/18 14:04 Last Admin: 03/02/18 10:59 Dose: 100 mls/hr Magnesium Sulfate 2 gm/ Sodium (Chloride) 104 mls @ 52 mls/hr IV X1 ONE Stop: 03/02/18 12:04 Last Admin: 03/02/18 10:59 Dose: 52 mls/hr Insulin Detemir (Levemir (Bkc)) 7 units SC DAILY [facility] Last Admin: 03/02/18 09:31 Dose: 7 u Insulin Detemir (Levemir (Bkc)) 10 units SC QHS [facility] Last Admin: 03/01/18 22:07 Dose: 10 units Insulin Human Lispro (Humalog Kwikpen (Bkc)) 0 unit SC ACHS [facility] PRN Reason: Protocol Last Admin: 03/02/18 11:06 Dose: Not Given Magnesium Oxide (Mag-Ox 400) 400 mg PO BID [facility] Last Admin: 03/02/18 09:30 Dose: 400 mg Metolazone (Zaroxolyn) 2.5 mg PO DAILY [facility] Last Admin: 03/02/18 09:32 Dose: 2.5 mg Nicotine (Nicoderm Cq (Pbkc)) 21 mg TRANSDERM. DAILY [facility] Last Admin: 03/02/18 09:32 Dose: Not Given Nitroglycerin (Nitrostat) 0.4 mg SUBLINGUAL Q5M PRN PRN Reason: CARDIAC/CHEST PAIN Nystatin (Mycostatin Powder) 1 applic TOPICAL TID [facility] Last Admin: 03/02/18 05:46 Dose: 1 applic Ondansetron HCl (Zofran) 4 mg IV Q6H PRN PRN PRN Reason: NAUSEA Oxycodone HCl (Oxyir) 5 - 10 mg PO Q4H PRN PRN PRN Reason: MILD-MODERATE PAIN Last Admin: 03/02/18 00:19 Dose: 10 mg Potassium [facility] ([facility]) [facility] Sodium Chloride () 5 - 30 ml IV UD PRN PRN Reason: SALINE FLUSH Last Admin: 03/02/18 09:31 Dose: 10 ml Venlafaxine HCl (Effexor Xr) 37.5 mg PO DAILY [facility] Last Admin: 03/02/18 09:31 Dose: 37.5 mg Medical Necessity - Tobacco Use Smoking Status: Current every day smoker Assessment/Plan 62y/o male with multiple comorbidities treated on 0 02/24/2018 with right hip pain. 1. Hypokalemia/hypomagnesemia secondary to IV Lasix therapy, replaced, will recheck in am 2. Enterobacter/MSSA cellulitis of the right lower extremity with nonhealing diabetic and ischemic ulcers, on IV levaquin(day 6 of antibiotics), will aim for 10 days total. 3. Acute on chronic biventricular CHF secondary to ischemic cardiomyopathy, EF 10-15%, admitting BNP was more than 4000, was on lasix drip and metalozone, will switch to oral lasix 40mg po bid, will continue to monitor. 4. PAD status post stenting left lower extremity, status post left BKA, on aspirin, statin, 5. Pulmonary hypertension/CAD/AICD 6. Depression, Effexor 7. Type II DM with peripheral neuropathy, controlled, continue on insulin with Accu-Cheks and insulin sliding scale 8. DVT ppx -Lovenox subcu 9. Disposition: Possible discharge to assisted facility on . Code Visit Inpatient E&M: 63273 Subs Hosp L2
[2018-03-02 13:23] LABS: BUN 33 mg/dL (7-18); BUN/Creat Ratio 37.5 RATIO (10-20); Calcium,Total 8.4 mg/dL (8.5-10.1); Carbon Dioxide > 45.0 mmol/L (21.0-32.0); Chloride 90 mmol/L (98-107); Creatinine, Serum 0.88 mg/dL (0.70-1.30); EST Glomerular Filtration Rate 94 mL/min (>60); Est Glom Filt Rate - Afr Amer 113 mL/min (>60); Estimated Creatinine Clearance 99.62 ml/min; Glucose 120 mg/dL (74-106); Sodium Level 135 mmol/L (136-145)
[2018-03-02 16:21] LABS: Bedside Glucose 114 mg/dL (70-110)
[2018-03-02] MEDS: Atorvastatin Calcium 40 MG Tablet PO (21:40)
[2018-03-02] MEDS: Albuterol 2.5 MG/3 ML VIAL.NEB. INHALATION (22:24)
[2018-03-02 22:41] LABS: Bedside Glucose 96 mg/dL (70-110)
[2018-03-03] VITALS (9 sets, daily range): BP systolic 101–106; BP diastolic 71–76; PULSE 71–98; RESP 16–20; TEMP 36.3–36.8; O2SAT 94–100
[2018-03-03] MEDS: Gabapentin 300 MG Capsule PO ×2 (06:54→14:41)
[2018-03-03] MEDS: Nystatin Powder 15gm Bottle 1 APPLIC TOPICAL ×2 (06:54→14:41)
[2018-03-03] MEDS: Albuterol 2.5 MG/3 ML VIAL.NEB. INHALATION (07:07)
[2018-03-03 07:20] LABS: Bedside Glucose 58 mg/dL (70-110)
[2018-03-03 07:50] LABS: Bedside Glucose 68 mg/dL (70-110)
[2018-03-03] MEDS: Aspirin 81 MG TAB.CHEW PO (08:55)
[2018-03-03] MEDS: levoFLOXacin IV 500 MG/100 ML BAG 100 MG IV (09:52)
[2018-03-03] MEDS: 0.9% NaCl Peripheral Flush Adult/Peds IV ×2 (09:53→13:45)
[2018-03-03] MEDS: Carvedilol 6.25 MG Tablet PO (09:59)
[2018-03-03] MEDS: Furosemide 40 MG Tablet PO ×2 (10:00→17:18)
[2018-03-03] MEDS: Enoxaparin 40 MG/0.4 ML Syringe SC (10:00)
[2018-03-03] MEDS: Venlafaxine XR 37.5 MG Capsule PO (10:00)
[2018-03-03] MEDS: Magnesium Oxide 400 MG Tablet PO (10:00)
[2018-03-03] MEDS: Famotidine 20 MG Tablet PO (10:01)
[2018-03-03] MEDS: Metolazone 2.5 MG Tablet PO (10:01)
[2018-03-03 11:01] LABS: Magnesium 1.8 mg/dL (1.6-2.6)
[2018-03-03 11:14] LABS: Phosphorus 3.4 mg/dL (2.5-4.9)
--- NOTE | 2018-03-03 11:23 | PCM.TXEXTCAR ---
- Diet 02/28/18 20:00 Diet: Cardiac: Calorie-Controlled Dietary Modifications:: Fluid Restricted Diet Diet Comments: 1200 ml fluid restriction How many daily calories?: 1999 calorie - Routine Orders/Code Status O2 Liters per Minute: 2 O2 Frequency: Continuous Keep PO Greater than or Equal to (%): 94 - encourage use of incentive spirometer Routine Lab Work: CBC - in 3 days, BMP - in 3 days Code Status: Full Code - Wound(s) RLE Wound Type: Stasis Ulcer Dressing Change: Aquacel AG, cover with dry dressing right anterior lower leg Wound Type: Stasis Ulcer Dressing Change: AntiMicrobial (Aquacel AG, etc) right posterior lower leg Wound Type: Stasis Ulcer Dressing Change: AntiMicrobial (Aquacel AG, etc) right lateral lower leg Wound Type: Stasis Ulcer Dressing Change: AntiMicrobial (Aquacel AG, etc) - Therapies Weight Bearing: Non weight bearing Extremity Affected:: Right Lower Physical Therapy: Eval and Treat Occupational Therapy: Eval and Treat - Allergies/Procedures Done in Hospital Allergies/Adverse Reactions: Allergies ezetimibe [From Zetia] Allergy (Verified 12/18/15 10:33) Rash pioglitazone HCl [From Actos] Adverse Reaction (Verified 12/18/15 10:33) Unknown UNSURE OF OTHER ALLERGIES Procedures: 2-D Echocardiogram - Type of Care/Length of Stay Estimated LOS: Convalescent Care Less Than 30 days Type of Care Needed: Skilled Rehab Potential: Good Prognosis: Good - Additional Orders/Day of Discharge Additional Orders: Consider restarting Lisinopril, Imdur and gabapentin if patient's renal function improves. Note wound dressings. Daily weights. May adjust Lasix as needed for anarsarca Day of Discharge: 03/03/18 - Dietary and Speech Recommendations Dietitian Recommendations/Changes: Gregory 1 packet BID for wound healing as indicated--order from pharmacy. Current wt as able. - Follow Up Care [facility] [[facility] - Please follow up with your Primary Care Physician in: within 2 weeks Please Follow Up With: Titus Mai MD When: within 2 weeks Please Follow Up With: Toan Martines MD When: within 2 weeks When: Wound center within 2 weeks
--- NOTE | 2018-03-03 11:33 | PCM.DC.SUM ---
Discharge Date and Diagnosis Date of Admission: 02/24/18 Date of Discharge: 03/03/18 - Primary Discharge Diagnosis Acute on chronic biventricular CHF Possible syncope Nonhealing diabetic ulcers AK I - Secondary Discharge Diagnosis Chronic Problems scrotal abces (Chronic) Tobacco user (Chronic) HLD (hyperlipidemia) (Chronic) DM2 (diabetes mellitus, type 2) (Chronic) CAD (coronary artery disease) (Chronic) COLD (chronic obstructive lung disease) (Chronic) Chronic CHF (Chronic) Benign essential HTN (Chronic) Acute exacerbation of chronic obstructive airways disease (Chronic) Hospital Course and Treatment Imaging Results: Clinical Impression(s) from Imaging Studies Brain CT 02/24/18 13:30 IMPRESSION: 1. Chronic involutional changes of the brain. 2. Soft tissue emphysema of the face and scalp may be the result of soft tissue injury or fracture. Electronically Signed: Mary Kay Zuluaga MD at 8:20 EDT , Service support , Hip/Pelvis X-Ray 02/24/18 13:30 IMPRESSION: No demonstrated right hip fracture. Electronically Signed: Shane Baker MD at 14:20 EDT Tel , Service support , Lower Extremity CT 02/24/18 16:10 IMPRESSION: 1. No CT evidence of acute fracture of the right hip. 2. Diffuse soft tissue edema probably related to anasarca. 3. Ascites. 4. Grade 1 spondylolisthesis at L5-S1 secondary to spondylolysis of L5 with degenerative disc disease at L5-S1. Electronically Signed: Mary Kay Zuluaga MD at 7:38 EDT , Service support , Chest X-Ray 02/27/18 08:22 IMPRESSION: Pulmonary congestion with pleural effusions. Electronically Signed: Mary Kay Zuluaga MD at 9:00 EDT , Service support , Consultations 02/24/18 16:25 Consult: Onc/Wound/seismograph operator helper Routine Comment: Operations: None Procedures: 2-D Echocardiogram Summary of Care Provided: 62y/o male with multiple comorbidities admitted on 02/24/2018 after a fall. He has a history of left BKA, and is in a wheelchair. [facility]. He is reported to have fallen out of his wheelchair 3-4 days prior to admission, and woke up in the pool of blood. He was found to have a large laceration on the bridge of his nose. He was found also to have cellulitis of his right lower extremity from chronic nonhealing leg ulcers. He had marked anasarca and was managed as acute on chronic biventricular CHF. He was started on IV Lasix and switch to Lasix drip with good effect. Active management was as follows: 1. Hypokalemia/hypomagnesemia secondary to IV Lasix therapy, replaced, needs to be rechecked in the outpatient 2. Enterobacter/MSSA cellulitis of the right lower extremity with nonhealing diabetic and ischemic ulcers, sensitive to Levaquin, discharged on 6 more days of Levaquin. 3. Acute on chronic biventricular CHF/cor pulmonale secondary to ischemic cardiomyopathy, EF 10-15%, as well as AICD, admitting BNP was more than 4000, was on lasix drip and metalozone, jugular Lasix 40 p.o. twice daily and metolazone, patient will need to follow-up with cardiology in [place] - appointment set up for within [address] Mai. 5. Pulmonary hypertension, severe/CAD/AICD, aspirin and Plavix 6. Depression, on Effexor 7. Type II DM with peripheral neuropathy, controlled, continue on insulin with Accu-Cheks and insulin sliding scale Discharge Diet: Low fat/ Low Cholesterol, 6 Cup Fluid Restriction, 2000 mg Sodium Diet Discharge Activity: Return to Normal Activity Home Medications: Medications to take at Discharge Aspirin [Aspirin, Baby] 81 mg PO DAILY@0800 11/08/13 Atorvastatin Calcium [Lipitor] 40 mg PO QHS 11/08/13 Cholecalciferol (Vitamin D3) [Vitamin D3] 3,000 unit PO DAILY 11/08/13 Clopidogrel Bisulfate [Plavix] 75 mg PO DAILY 11/08/13 Multivitamins,Ther W-Minerals [Multivitamin With Minerals] 1 tablet PO DAILY 11/08/13 Omeprazole [Prilosec] 20 mg PO QHS 02/28/18 Tamsulosin HCl [Flomax] 0.4 mg PO QHS 02/28/18 Carvedilol [Coreg (Beta Lynn)] 6.25 mg PO BID tab 03/03/18 Famotidine [Pepcid] 20 mg PO BID tab 03/03/18 Furosemide [Lasix] 40 mg PO BID #0 03/03/18 Insulin Detemir [Levemir FlexPen] 5 units SC DAILY insuln.pen 03/03/18 Insulin Detemir [Levemir FlexPen] 5 units SC QHS insuln.pen 03/03/18 Insulin Lispro [Humalog KwikPen] See Protocol SC ACHS insuln.pen 03/03/18 Magnesium Oxide [Mag-Ox 400] 400 mg PO BID tab 03/03/18 Metolazone [Zaroxolyn] 2.5 mg PO DAILY tab 03/03/18 Nicotine [Nicoderm Cq] 21 mg TRANSDERM. DAILY patch 03/03/18 Potassium Chloride [K-Dur] 40 meq PO BIDCM tab 03/03/18 Venlafaxine XR [Effexor Xr] 37.5 mg PO DAILY cap 03/03/18 levoFLOXacin tablet [Levaquin tablet] 750 mg PO DAILY #6 tab 03/03/18 traMADol [Ultram] 100 mg PO TID #20 tab 03/03/18 Following Prescrptions Were Given to Patient: levoFLOXacin tablet [Levaquin tablet] 750 mg PO DAILY #6 tab traMADol [Ultram] 100 mg PO TID #20 tab [facility] [[facility]] - Please follow up with your Primary Care Physician in: within 2 weeks Please Follow Up With: Titus Mai MD When: within 2 weeks Please Follow Up With: Toan Martines MD When: within 2 weeks When: Wound center within 2 weeks Disposition: [facility] facility Minutes spent on discharge:: 55 Patient Condition:: Stable Medical Necessity - Tobacco Use Smoking Status: Current every day smoker Meaningful Use Info Meaningful Use Diagnoses (Choose all that apply): None applicable Code Visit Inpatient E&M: 58997 Disch Hosp
[2018-03-03 11:41] LABS: Bedside Glucose 123 mg/dL (70-110)
[2018-03-03 11:41] LABS: BUN 31 mg/dL (7-18); Calcium,Total 8.2 mg/dL (8.5-10.1); Carbon Dioxide > 45.0 mmol/L (21.0-32.0); Chloride 87 mmol/L (98-107); Creatinine, Serum 0.88 mg/dL (0.70-1.30); EST Glomerular Filtration Rate 93 mL/min (>60); Est Glom Filt Rate - Afr Amer 112 mL/min (>60); Estimated Creatinine Clearance 99.62 ml/min; Glucose 108 mg/dL (74-106); Potassium 3.7 mmol/L (3.5-5.1); Sodium Level 135 mmol/L (136-145)
--- NOTE | 2018-03-03 11:42 | CASEMGMT ---
Received a voice mail from Jennifer that she received insurance authorization for patient. [place] called Jennifer and let her know patient will be coming today. Tiffany NIX MSW
[2018-03-03] MEDS: oxyCODONE 5 MG Tablet PO ×2 (12:47→17:18)
--- NOTE | 2018-03-03 13:40 | CASEMGMT ---
Faxed orders to [facility]. Completed convalescent on HENS. Called [facility] and arranged for patient to get picked up at 6p via cot. He is getting an IV medication before he leaves. SW notified RN, left a message for Jennifer at [facility], notified patient, and left a message for his . All in agreement with d/c plan. Plan: d/c to [facility] under skilled level of care on a convalescent stay. [facility] transported him via cot. Tiffany NIX MSW
[2018-03-03 16:26] LABS: Bedside Glucose 80 mg/dL (70-110)
[2018-03-04 10:25] LABS: Bedside Glucose 214 mg/dL (70-110)
[2018-03-04 13:57] LABS: Bedside Glucose 249 mg/dL (70-110)
[2018-03-04 14:01] LABS: Bedside Glucose 223 mg/dL (70-110)
[2018-03-04 14:03] LABS: Bedside Glucose 182 mg/dL (70-110)
[2018-03-04 14:05] LABS: Bedside Glucose 174 mg/dL (70-110)
[2018-03-04 18:08] LABS: Bedside Glucose 118 mg/dL (70-110)
[2018-03-04 18:11] LABS: Bedside Glucose 144 mg/dL (70-110)
[2018-03-04 18:14] LABS: Bedside Glucose 224 mg/dL (70-110)
[2018-03-04 18:27] LABS: Bedside Glucose 102 mg/dL (70-110)
[2018-03-04 20:56] LABS: Bedside Glucose 256 mg/dL (70-110)
--- NOTE | 2018-03-09 08:17 | LEAS ---
Arterial Study - Arterial Study Arterial Study: Date of scan 02/25/[address] Adelfo Gaytan History: Patient with right lower extremity wounds previous left below-knee amputation smokes 2 packs a day. PVRs show slightly decreased waveform but maintained throughout the low thigh to the calf ankle into the digits duplex at the ankle is a more monophasic flow the posterior tibial and 5 with an 8 and biphasic in the dorsalis pedis. Both are noncompressible. Digit brachial index 0.63. Next Left lower extremity normal pulsatile flow in the thigh is a left below-knee amputation. Impression: 1. 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 He does have biphasic flow at the ankle but noncompressibility and unable to get an NELSON. Further evaluation as clinically warranted. Digit brachial index 0.63.
== END 2018-03-03 18:15 | disposition skilled nursing facility (03) | DRG 637 ==
LOC: ED 17:40 → PCU 17:41
PROVIDERS: Emergency Medicine; Family Medicine; Physician Assistant; Admitting Provider Internal Medicine; Emergency Provider Emergency Medicine; Visit Provider Internal Medicine
DX: E11.622 Type 2 diabetes mellitus with other skin ulcer (principal); I50.23 Acute on chronic systolic (congestive) heart failure; L03.115 Cellulitis of right lower limb; I13.0 Hypertensive heart and chronic kidney disease with heart failure and stage 1 through stage 4 chronic kidney disease, or unspecified chronic kidney disease; L98.499 Non-pressure chronic ulcer of skin of other sites with unspecified severity; N17.9 Acute kidney failure, unspecified; I27.81 Cor pulmonale (chronic); I50.82 Biventricular heart failure; E11.22 Type 2 diabetes mellitus with diabetic chronic kidney disease; E11.40 Type 2 diabetes mellitus with diabetic neuropathy, unspecified; N18.9 Chronic kidney disease, unspecified; B95.7 Other staphylococcus as the cause of diseases classified elsewhere; B96.89 Other specified bacterial agents as the cause of diseases classified elsewhere; E11.42 Type 2 diabetes mellitus with diabetic polyneuropathy; B95.61 Methicillin susceptible Staphylococcus aureus infection as the cause of diseases classified elsewhere; S02.2XXA Fracture of nasal bones, initial encounter for closed fracture; W05.0XXA Fall from non-moving wheelchair, initial encounter; Y93.9 Activity, unspecified; Y92.9 Unspecified place or not applicable; Y99.9 Unspecified external cause status; R26.9 Unspecified abnormalities of gait and mobility; I25.10 Atherosclerotic heart disease of native coronary artery without angina pectoris; I25.5 Ischemic cardiomyopathy; J44.9 Chronic obstructive pulmonary disease, unspecified; E87.6 Hypokalemia; E83.42 Hypomagnesemia; L89.151 Pressure ulcer of sacral region, stage 1; L30.4 Erythema intertrigo; I27.20 Pulmonary hypertension, unspecified; I73.9 Peripheral vascular disease, unspecified; E78.5 Hyperlipidemia, unspecified; K21.9 Gastro-esophageal reflux disease without esophagitis; N40.0 Benign prostatic hyperplasia without lower urinary tract symptoms; F17.200 Nicotine dependence, unspecified, uncomplicated; F32.9 Major depressive disorder, single episode, unspecified; Z79.02 Long term (current) use of antithrombotics/antiplatelets; Z79.82 Long term (current) use of aspirin; Z79.4 Long term (current) use of insulin; Z79.899 Other long term (current) drug therapy; Z89.512 Acquired absence of left leg below knee; Z95.810 Presence of automatic (implantable) cardiac defibrillator; Z95.5 Presence of coronary angioplasty implant and graft; Z86.73 Personal history of transient ischemic attack (TIA), and cerebral infarction without residual deficits
CPT/HCPCS: 36415; 70450; 71045; 73502; 73700; 80048; 80061; 80076; 81001; 82962; 83036; 83605; 83735; 83880; 84100; 84484; 85025; 85610; 85652; 86140; 87070; 87077; 87086; 87088; 87184; 87186; 87205; 87640; 93005; 93306; 93923; 93971; 94640; 96361; 96374; 96375; 97162; 97166; 97530; 97802; 99284; J7030; J7040; A4216; J1940; J2405

== ENCOUNTER 2018-04-06 08:15 | Outpatient (RCR) | payer MEDICAID, SELFPAY ==
[2018-03-30 08:53] VITALS: BP 92/56; PULSE 68; RESP 16; TEMP 35.6; BMI 22.4
--- NOTE | 2018-03-30 18:58 | PCM.WC.HP ---
(1) Ulcer of right lower extremity with fat layer exposed Status: Chronic Current Visit: Yes Code(s): L97.912 - Non-pressure chronic ulcer of unspecified part of right lower leg with fat layer exposed (2) Decubitus ulcer of right elbow, stage 3 Status: Chronic Current Visit: Yes Code(s): L89.013 - Pressure ulcer of right elbow, stage 3 (3) Sacral decubitus ulcer, stage III Status: Chronic Current Visit: Yes Code(s): L89.153 - Pressure ulcer of sacral region, stage 3 (4) Decubitus ulcer of right buttock, stage 3 Status: Chronic Current Visit: Yes Code(s): L89.313 - Pressure ulcer of right buttock, stage 3 (5) Peripheral vascular occlusive disease Status: Chronic Current Visit: No Code(s): I73.9 - Peripheral vascular disease, unspecified Comment: LLE Angioplasty and stent (6) DM2 (diabetes mellitus, type 2) Status: Chronic Current Visit: No Code(s): E11.9 - Type 2 diabetes mellitus without complications History of Present Illness Date of Service: 03/30/18 Chief Complaint: Right lower extremity ulcers. Right elbow ulcers. Sacral and Buttock ulcers. History of Wound: Mr. Bocanegra is a 62-year-old significant past medical history who presented to the wound center due to lower extremity, elbow and decubitus ulcers. He was recently admitted to the hospital and managed for right lower extremity cellulitis after his abscesses stay, he was discharged to a halfway and that he developed decubitus ulcer. He has had some wound care at the halfway however wound has shown no improvement. He denies any significant discharge from the wound. He also denies chills or fever at this time. Past Medical History Past Medical History: Chronic Problems (Last Reviewed 03/16/18 @ 15:24 by Titus Mai MD) Ulcer of right lower extremity with fat layer exposed (Chronic) Decubitus ulcer of right elbow, stage 3 (Chronic) Sacral decubitus ulcer, stage III (Chronic) Decubitus ulcer of right buttock, stage 3 (Chronic) Secondary pulmonary arterial hypertension (Chronic) Nonrheumatic mitral (valve) insufficiency (Chronic) Non-rheumatic tricuspid valve insufficiency (Chronic) Ischemic cardiomyopathy (Chronic) History of coronary artery stent placement (Chronic) Peripheral vascular occlusive disease (Chronic) LLE Angioplasty and stent Nicotine dependence (Chronic) Presence of biventricular implantable cardioverter-defibrillator (ICD) (Chronic) Atherosclerosis of coronary artery of [place] heart without angina pectoris (Chronic) Hypertension (Chronic) HLD (hyperlipidemia) (Chronic) DM2 (diabetes mellitus, type 2) (Chronic) COLD (chronic obstructive lung disease) (Chronic) Surgical History: cataract Allergies/Adverse Reactions: Allergies ezetimibe [From Zetia] Allergy (Verified 03/16/18 14:30) Rash metformin [From Glucophage] Adverse Reaction (Verified 03/16/18 14:35) Unknown pioglitazone HCl [From Actos] Adverse Reaction (Verified 03/16/18 14:30) Unknown UNSURE OF OTHER ALLERGIES Sszakwn-Jvy-Cde Reductase Inhibitor Adverse Reaction (Verified 03/16/18 14:35) Unknown cefepime Adverse Reaction (Uncoded 03/16/18 14:35) Unknown glyberide Adverse Reaction (Uncoded 03/16/18 14:35) Unknown Home Medications: Ambulatory Orders Medication Instructions Recorded Aspirin [Aspirin, Baby] 81 mg PO DAILY@0800 11/08/13 Atorvastatin Calcium [Lipitor] 40 mg PO QHS 11/08/13 Cholecalciferol (Vitamin D3) 3,000 unit PO DAILY 11/08/13 [Vitamin D3] Clopidogrel Bisulfate [Plavix] 75 mg PO DAILY 11/08/13 Multivitamins,Ther W-Minerals 1 tab PO DAILY 11/08/13 [Multivitamin With Minerals] Omeprazole [Prilosec] 20 mg PO QHS 02/28/18 Tamsulosin HCl [Flomax] 0.4 mg PO QHS 02/28/18 Famotidine [Pepcid] 20 mg PO BID tab 03/03/18 Furosemide [Lasix] 40 mg PO BID #0 03/03/18 Insulin Detemir [Levemir FlexPen] 5 units SC DAILY insuln.pen 03/03/18 Insulin Detemir [Levemir FlexPen] 5 units SC QHS insuln.pen 03/03/18 Insulin Lispro [Humalog KwikPen] See Protocol SC ACHS insuln.pen 03/03/18 Magnesium Oxide [Mag-Ox 400] 400 mg PO BID tab 03/03/18 Metolazone [Zaroxolyn] 2.5 mg PO DAILY tab 03/03/18 Venlafaxine XR [Effexor Xr] 37.5 mg PO DAILY cap 03/03/18 carvedilol 12.5 mg tablet 12.5 mg PO BID 03/16/18 oxycodone 5 mg capsule 5 mg PO ONCE PRN 03/16/18 potassium chloride ER 20 mEq 40 meq PO TID tab 03/17/18 tablet,extended release(part/cryst) Smoking Status: Current every day smoker Review of Systems Constitutional: Denies: Anorexia, Malaise Eyes: Denies: Blurred vision, Redness HEENT: Denies: Difficulty Hearing, Difficulty Swallowing Cardiovascular: Denies: Chest Pain Respiratory: Denies: Hemoptysis Gastrointestinal: Denies: Abdominal Pain, Hematemesis, Vomiting Skin: Denies: Jaundice - Physical Exam Vital Signs Temp Pulse Resp BP 96.0 F L 68 16 92/56 L 03/30/18 08:53 03/30/18 08:53 03/30/18 08:53 03/30/18 08:53 General: Alert, Oriented x3, Cooperative, No apparent distress HEENT: Atraumatic Oral: Moist Mucosa Neck: Supple Cardiovascular: Regular rate, Regular Rhythm Abdomen: Soft, Non Tender Skin: Ulcer/ Wound Wound Measurements and Assessment WC - Nurse 1 - General Ulcer Measurement Start: 03/30/18 08:37 Freq: Status: Active Protocol: Activity Type Activity Date Activity User E-Sign Co-Sign Detail Recorded Client Recorded Date Recorded By Document 03/30/18 08:53 [id number] 03/30/18 09:19 03/30/18 08:53 Wound Center Nurse 1 [Ulcer Assessment] #5 RIGHT ELBOW -Combined with other wound No -Current Size (cm) - Length 1.1 -Current Size (cm) - Width 0.2 -Current Size (cm) - Depth 0 -Total Square Cm 0.22 -Photo Taken Yes -Epithelialization None Present -Tunneling No -Undermining/Tunneling No -Circular Undermining No -Classification - Thickness Full Thickness without Exposed Support Structure -Exudate Amt Small (1-33%) -Exudate Type Serosanguineous -Wound Margin Distinct, Outline Attached -Granulation Amt Medium (34-66%) -Granulation Quality [place] Red -Slough/Fibrin Yes -Necrosis Amt Medium (34-66%) -Necrotic Tissue Type Adherent Slough -Structure Exposed N/A -Texture (Tari-wound Skin Appearance) Friable -Moisture (Tari-wound Skin Appearance Assessed ) -Color (Tari-wound Skin Appearance) Assessed -Temperature (Tari-wound Skin No Abnormality Appearance) (Pt Warm) -Tenderness on Palpation (Tari-wound No Skin Appearance) -Ulcer Cleansing Rinsed/ Irrigated with Saline -Foul Odor after Cleansing No -Anesthetic Used 5% Lidocaine Gel #4 RIGHT HIP -Combined with other wound No -Current Size (cm) - Length 0.5 -Current Size (cm) - Width 0.6 -Current Size (cm) - Depth 0.1 -Total Square Cm 0.30 -Date of Last Picture (Recall this 03/30/18 field) -Photo Taken Yes -Epithelialization None Present -Tunneling No -Undermining/Tunneling No -Circular Undermining No -Exudate Amt Medium (34-66%) -Exudate Type Serosanguineous -Wound Margin Distinct, Outline Attached -Granulation Amt Small (1-33%) -Granulation Quality [place] -Slough/Fibrin Yes -Necrosis Amt Medium (34-66%) -Necrotic Tissue Type Adherent Slough -Texture (Tari-wound Skin Appearance) Assessed -Moisture (Tari-wound Skin Appearance Assessed ) -Color (Tari-wound Skin Appearance) Assessed -Temperature (Tari-wound Skin No Abnormality Appearance) (Pt Warm) -Tenderness on Palpation (Tari-wound No Skin Appearance) -Ulcer Cleansing Rinsed/ Irrigated with Saline -Foul Odor after Cleansing No -Anesthetic Used 5% Lidocaine Gel #3 SACRUM -Current Size (cm) - Length 3 -Current Size (cm) - Width 1.7 -Current Size (cm) - Depth 0.1 -Total Square Cm 5.1 -Date of Last Picture (Recall this 03/30/18 field) -Photo Taken Yes -Epithelialization None Present -Tunneling No -Undermining/Tunneling No -Circular Undermining No -Exudate Amt None Present (0 %) -Wound Margin Distinct, Outline Attached -Granulation Amt None Present (0 %) -Granulation Quality N/A -Slough/Fibrin Yes -Necrosis Amt None Present (0 %) -Necrotic Tissue Type Adherent Slough -Structure Exposed None/Limited to Skin Breakdown -Texture (Tari-wound Skin Appearance) No Abnormality Assessed -Moisture (Tari-wound Skin Appearance No Abnormality ) Assessed -Color (Tari-wound Skin Appearance) Assessed Ecchymosis Erythema -Temperature (Tari-wound Skin No Abnormality Appearance) (Pt Warm) -Tenderness on Palpation (Tari-wound No Skin Appearance) -Ulcer Cleansing Rinsed/ Irrigated with Saline -Foul Odor after Cleansing No -Anesthetic Used 5% Lidocaine Gel #2 RIGHT ANTERIOR LE -Combined with other wound No -Date of Last Picture (Recall this 03/30/18 field) -Photo Taken Yes -Epithelialization None Present -Tunneling No -Undermining/Tunneling No -Circular Undermining No -Exudate Amt Small (1-33%) -Exudate Type Serosanguineous -Wound Margin Distinct, Outline Attached -Granulation Amt None Present (0 %) -Granulation Quality N/A -Slough/Fibrin Yes -Necrosis Amt Medium (34-66%) -Necrotic Tissue Type Eschar -Texture (Tari-wound Skin Appearance) No Abnormality Assessed -Moisture (Tari-wound Skin Appearance Assessed ) Dry/Scaly -Color (Tari-wound Skin Appearance) No Abnormality Assessed -Temperature (Tari-wound Skin No Abnormality Appearance) (Pt Warm) -Tenderness on Palpation (Tari-wound No Skin Appearance) -Ulcer Cleansing Rinsed/ Irrigated with Saline -Foul Odor after Cleansing No -Anesthetic Used 5% Lidocaine Gel #1 RIGHT POST. LE -Combined with other wound No -Current Size (cm) - Length 4.0 -Current Size (cm) - Width 1.7 -Current Size (cm) - Depth 0 -Total Square Cm 6.80 -Photo Taken Yes -Epithelialization None Present -Tunneling No -Undermining/Tunneling No -Circular Undermining No -Exudate Amt Small (1-33%) -Exudate Type Serosanguineous -Wound Margin Distinct, Outline Attached -Granulation Amt Medium (34-66%) -Granulation Quality Red -Slough/Fibrin Yes -Necrosis Amt Medium (34-66%) -Necrotic Tissue Type Adherent Slough -Structure Exposed None/Limited to Skin Breakdown -Texture (Tari-wound Skin Appearance) Assessed -Moisture (Tari-wound Skin Appearance Assessed ) Maceration -Color (Tari-wound Skin Appearance) No Abnormality Assessed -Temperature (Tari-wound Skin No Abnormality Appearance) (Pt Warm) -Tenderness on Palpation (Tari-wound No Skin Appearance) -Ulcer Cleansing Rinsed/ Irrigated with Saline -Foul Odor after Cleansing No -Anesthetic Used 5% Lidocaine Gel [Edema Assessment] -Lower Limb Edema Present Yes -Right Calf (cm) 25.8 -Right Ankle (cm) 18 WC - Nurse 2 - General Ulcer CM Notes Start: 03/30/18 08:37 Freq: Status: Active Protocol: Activity Type Activity Date Activity User E-Sign Co-Sign Detail Recorded Client Recorded Date Recorded By Document 03/30/18 09:46 JACE [id number] 03/30/18 10:05 JACE 03/30/18 09:46 Wound Center Nurse 2 [Procedure/Treatment] #5 RIGHT ELBOW -Time 09:46 -Correct Patient Yes -Correct Side, Site, Position Yes -Correct Procedure Yes -Procedure Performed Yes -Type of Procedure Debridement -Clinical Debridement Subcutaneous -Post Debridement Size (cm) - Length 1.5 -Post Debridement Size (cm) - Width 1.3 -Post Debridement Size (cm) - Depth 0.1 -Total Square Cm 1.95 -Wound/Ulcer Outcome Not Healed -Ulcer Cleansing Rinsed/ Irrigated with Saline -Foul Odor after Cleansing No -Bioengineered Tissue No -Topical Lidocaine (%) 4 -Lidocaine (ml) 5 -Bleeding Controlled with NA -Treatment Response Procedure Tolerated Well #4 RIGHT HIP -Time 09:56 -Correct Patient Yes -Correct Side, Site, Position Yes -Correct Procedure Yes -Procedure Performed Yes -Type of Procedure Debridement -Clinical Debridement Subcutaneous -Post Debridement Size (cm) - Length 1.0 -Post Debridement Size (cm) - Width 0.8 -Post Debridement Size (cm) - Depth 0.1 -Total Square Cm 0.80 -Wound/Ulcer Outcome Not Healed -Ulcer Cleansing Rinsed/ Irrigated with Saline -Foul Odor after Cleansing No -Bioengineered Tissue No -Topical Lidocaine (%) 4 -Lidocaine (ml) 5 -Bleeding Controlled with NA -Treatment Response Procedure Tolerated Well #3 SACRUM -Time 09:51 -Correct Patient Yes -Correct Side, Site, Position Yes -Correct Procedure Yes -Procedure Performed Yes -Type of Procedure Debridement -Clinical Debridement Subcutaneous -Post Debridement Size (cm) - Length 5.5 -Post Debridement Size (cm) - Width 3.0 -Post Debridement Size (cm) - Depth 0.1 -Total Square Cm 16.50 -Wound/Ulcer Outcome Not Healed -Ulcer Cleansing Rinsed/ Irrigated with Saline -Foul Odor after Cleansing Yes -Bioengineered Tissue No -Topical Lidocaine (%) 4 -Lidocaine (ml) 5 -Bleeding Controlled with NA -Treatment Response Procedure Tolerated Well #2 RIGHT ANTERIOR LE -Time 09:48 -Correct Patient Yes -Correct Side, Site, Position Yes -Correct Procedure Yes -Procedure Performed Yes -Type of Procedure Debridement -Clinical Debridement Subcutaneous -Post Debridement Size (cm) - Length 2.8 -Post Debridement Size (cm) - Width 0.8 -Post Debridement Size (cm) - Depth 0.1 -Total Square Cm 2.24 -Wound/Ulcer Outcome Not Healed -Ulcer Cleansing Rinsed/ Irrigated with Saline -Foul Odor after Cleansing No -Bioengineered Tissue No -Topical Lidocaine (%) 4 -Lidocaine (ml) 5 -Bleeding Controlled with NA -Treatment Response Procedure Tolerated Well #1 RIGHT POST. LE -Time 09:49 -Correct Patient Yes -Correct Side, Site, Position Yes -Correct Procedure Yes -Procedure Performed Yes -Type of Procedure Debridement -Clinical Debridement Subcutaneous -Post Debridement Size (cm) - Length 4.0 -Post Debridement Size (cm) - Width 1.7 -Post Debridement Size (cm) - Depth 0.1 -Total Square Cm 6.80 -Wound/Ulcer Outcome Not Healed -Ulcer Cleansing Rinsed/ Irrigated with Saline -Foul Odor after Cleansing No -Bioengineered Tissue No -Topical Lidocaine (%) 4 -Lidocaine (ml) 5 -Bleeding Controlled with NA -Treatment Response Procedure Tolerated Well [See Physician Procedure note for Specifics] Pain Scale: 0-10 Numeric [Pain] -Is Patient Pain Free? Yes Neurological: Cranial nerves II-XII grossly intact Psych/Mental Status: Normal Affect Debridement Note Post-Debridement Measurements/Treatment WC - Nurse 2 - General Ulcer CM Notes Start: 03/30/18 08:37 Freq: Status: Active Protocol: Activity Type Activity Date Activity User E-Sign Co-Sign Detail Recorded Client Recorded Date Recorded By Document 03/30/18 09:46 JACE [id number] 03/30/18 10:05 JACE 03/30/18 09:46 Wound Center Nurse 2 #5 RIGHT ELBOW -Time 09:46 -Correct Patient Yes -Correct Side, Site, Position Yes -Correct Procedure Yes -Procedure Performed Yes -Type of Procedure Debridement -Clinical Debridement Subcutaneous -Post Debridement Size (cm) - Length 1.5 -Post Debridement Size (cm) - Width 1.3 -Post Debridement Size (cm) - Depth 0.1 -Total Square Cm 1.95 -Wound/Ulcer Outcome Not Healed -Ulcer Cleansing Rinsed/ Irrigated with Saline -Foul Odor after Cleansing No -Bioengineered Tissue No -Topical Lidocaine (%) 4 -Lidocaine (ml) 5 -Bleeding Controlled with NA -Treatment Response Procedure Tolerated Well #4 RIGHT HIP -Time 09:56 -Correct Patient Yes -Correct Side, Site, Position Yes -Correct Procedure Yes -Procedure Performed Yes -Type of Procedure Debridement -Clinical Debridement Subcutaneous -Post Debridement Size (cm) - Length 1.0 -Post Debridement Size (cm) - Width 0.8 -Post Debridement Size (cm) - Depth 0.1 -Total Square Cm 0.80 -Wound/Ulcer Outcome Not Healed -Ulcer Cleansing Rinsed/ Irrigated with Saline -Foul Odor after Cleansing No -Bioengineered Tissue No -Topical Lidocaine (%) 4 -Lidocaine (ml) 5 -Bleeding Controlled with NA -Treatment Response Procedure Tolerated Well #3 SACRUM -Time 09:51 -Correct Patient Yes -Correct Side, Site, Position Yes -Correct Procedure Yes -Procedure Performed Yes -Type of Procedure Debridement -Clinical Debridement Subcutaneous -Post Debridement Size (cm) - Length 5.5 -Post Debridement Size (cm) - Width 3.0 -Post Debridement Size (cm) - Depth 0.1 -Total Square Cm 16.50 -Wound/Ulcer Outcome Not Healed -Ulcer Cleansing Rinsed/ Irrigated with Saline -Foul Odor after Cleansing Yes -Bioengineered Tissue No -Topical Lidocaine (%) 4 -Lidocaine (ml) 5 -Bleeding Controlled with NA -Treatment Response Procedure Tolerated Well #2 RIGHT ANTERIOR LE -Time 09:48 -Correct Patient Yes -Correct Side, Site, Position Yes -Correct Procedure Yes -Procedure Performed Yes -Type of Procedure Debridement -Clinical Debridement Subcutaneous -Post Debridement Size (cm) - Length 2.8 -Post Debridement Size (cm) - Width 0.8 -Post Debridement Size (cm) - Depth 0.1 -Total Square Cm 2.24 -Wound/Ulcer Outcome Not Healed -Ulcer Cleansing Rinsed/ Irrigated with Saline -Foul Odor after Cleansing No -Bioengineered Tissue No -Topical Lidocaine (%) 4 -Lidocaine (ml) 5 -Bleeding Controlled with NA -Treatment Response Procedure Tolerated Well #1 RIGHT POST. LE -Time 09:49 -Correct Patient Yes -Correct Side, Site, Position Yes -Correct Procedure Yes -Procedure Performed Yes -Type of Procedure Debridement -Clinical Debridement Subcutaneous -Post Debridement Size (cm) - Length 4.0 -Post Debridement Size (cm) - Width 1.7 -Post Debridement Size (cm) - Depth 0.1 -Total Square Cm 6.80 -Wound/Ulcer Outcome Not Healed -Ulcer Cleansing Rinsed/ Irrigated with Saline -Foul Odor after Cleansing No -Bioengineered Tissue No -Topical Lidocaine (%) 4 -Lidocaine (ml) 5 -Bleeding Controlled with NA -Treatment Response Procedure Tolerated Well Pain Scale: 0-10 Numeric Is Patient Pain Free? Yes Wound debrided: Right fletcher Wound Grade/Stage: Harrell I Type of Debridement: Excisional debridement Anesthesia Used: 5% Lidocaine Gel Depth: Down to and including healthy tissue, in the subcutaneous layer Percentage of wound debrided: 100 Instrument Used: 5mm curette Tissue Removed: Slough and devitalized tissue Severity: Fat Layer Exposed Amount of bleeding with debridement: Mild Bleeding Controlled with: Pressure Patient tolerated procedure well - Additional Wound Wound debrided: Right Calf ( Posterior LE ) Wound Grade/Stage: Harrell II Type of Debridement: Excisional debridement Anesthesia Used: 4% Lidocaine Solution Depth: Down to and including healthy tissue, in the subcutaneous layer Percentage of wound debrided: 100 Instrument Used: 5mm curette Tissue Removed: Slough and devitalized tissue Severity: Fat Layer Exposed Amount of bleeding with debridement: Mild Bleeding Controlled with: Pressure Patient tolerated procedure: Patient tolerated procedure well - Additional Wound Wound debrided: Right Elbow Wound Grade/Stage: Stage III Type of Debridement: Excisional debridement Anesthesia Used: 4% Lidocaine Solution Depth: Down to and including healthy tissue, in the subcutaneous layer Percentage of wound debrided: 100 Instrument Used: 5mm curette Tissue Removed: Slough and devitalized tissue Severity: Fat Layer Exposed Amount of bleeding with debridement: Mild Bleeding Controlled with: Pressure Patient tolerated procedure: Patient tolerated procedure well - Additional Wound Wound debrided: Sacral ulcer Wound Grade/Stage: Stage III Type of Debridement: Excisional debridement Anesthesia Used: 4% Lidocaine Solution Depth: Down to and including healthy tissue, in the subcutaneous layer Percentage of wound debrided: 100 Instrument Used: 5mm curette Tissue Removed: SLough and devitalized tissue Severity: Fat Layer Exposed Amount of bleeding with debridement: Mild Bleeding Controlled with: Pressure Patient tolerated procedure: Patient tolerated procedure well - Additional Wound Wound debrided: Right buttock ulcer Wound Grade/Stage: Stage II Type of Debridement: Excisional debridement Anesthesia Used: 4% Lidocaine Solution Depth: Down to and including healthy tissue, in the subcutaneous layer Percentage of wound debrided: 100 Instrument Used: 5mm curette Tissue Removed: SLough and devitalized tissue Severity: Fat Layer Exposed Amount of bleeding with debridement: Mild Bleeding Controlled with: Pressure Patient tolerated procedure: Patient tolerated procedure well Assessment/Plan Active Problems (Last Reviewed 03/16/18 @ 15:24 by Titus Mai MD) Ulcer of right lower extremity with fat layer exposed (Chronic) Decubitus ulcer of right elbow, stage 3 (Chronic) Sacral decubitus ulcer, stage III (Chronic) Decubitus ulcer of right buttock, stage 3 (Chronic) Assessment: As stated above. Plan: As stated above Mr. Bocanegra returns to the wound center with different ulcers with different etiologies. Debridement of all ulcers were done as documented above. Procedure was well-tolerated. Apply Fibracol with Adaptic over top to all ulcers. Pressure relief discussed. He will probably benefit from a low loss air mattress. Zinc oxide cream to buttocks/periwound area. Elevate lower extremity when seated. Follow-up in 1 week. Advised to call with any concerns or questions. This note was generated with [email or web address] software. It may contain incorrect words, spelling, and punctuation that were not noted in checking the note before signing.
--- NOTE | 2018-03-30 19:08 | HP.PCM_ITS ---
(1) Ulcer of right lower extremity with fat layer exposed Status: Chronic Current Visit: Yes Code(s): L97.912 - Non-pressure chronic ulcer of unspecified part of right lower leg with fat layer exposed (2) Decubitus ulcer of right elbow, stage 3 Status: Chronic Current Visit: Yes Code(s): L89.013 - Pressure ulcer of right elbow, stage 3 (3) Sacral decubitus ulcer, stage III Status: Chronic Current Visit: Yes Code(s): L89.153 - Pressure ulcer of sacral region, stage 3 (4) Decubitus ulcer of right buttock, stage 3 Status: Chronic Current Visit: Yes Code(s): L89.313 - Pressure ulcer of right buttock, stage 3 (5) Peripheral vascular occlusive disease Status: Chronic Current Visit: No Code(s): I73.9 - Peripheral vascular disease, unspecified Comment: LLE Angioplasty and stent (6) DM2 (diabetes mellitus, type 2) Status: Chronic Current Visit: No Code(s): E11.9 - Type 2 diabetes mellitus without complications History of Present Illness Date of Service: 03/30/18 Chief Complaint: Right lower extremity ulcers. Right elbow ulcers. Sacral and Buttock ulcers. History of Wound: Mr. Bocanegra is a 62-year-old significant past medical history who presented to the wound center due to lower extremity, elbow and decubitus ulcers. He was recently admitted to the hospital and managed for right lower extremity cellulitis after his abscesses stay, he was [facility] a jail and that he developed decubitus ulcer. He has had some wound care at the jail however wound has shown no improvement. He denies any significant discharge from the wound. He also denies chills or fever at this time. Past Medical History Past Medical History: Chronic Problems (Last Reviewed 03/16/18 @ 15:24 by Titus Mai MD) Ulcer of right lower extremity with fat layer exposed (Chronic) Decubitus ulcer of right elbow, stage 3 (Chronic) Sacral decubitus ulcer, stage III (Chronic) Decubitus ulcer of right buttock, stage 3 (Chronic) Secondary pulmonary arterial hypertension (Chronic) Nonrheumatic mitral (valve) insufficiency (Chronic) Non-rheumatic tricuspid valve insufficiency (Chronic) Ischemic cardiomyopathy (Chronic) History of coronary artery stent placement (Chronic) Peripheral vascular occlusive disease (Chronic) LLE Angioplasty and stent Nicotine dependence (Chronic) Presence of biventricular implantable cardioverter-defibrillator (ICD) (Chronic) Atherosclerosis of coronary artery of [place] heart without angina pectoris ( Chronic) Hypertension (Chronic) HLD (hyperlipidemia) (Chronic) DM2 (diabetes mellitus, type 2) (Chronic) COLD (chronic obstructive lung disease) (Chronic) Surgical History: cataract Allergies/Adverse Reactions: Allergies ezetimibe [From Zetia] Allergy (Verified 03/16/18 14:30) Rash metformin [From Glucophage] Adverse Reaction (Verified 03/16/18 14:35) Unknown pioglitazone HCl [From Actos] Adverse Reaction (Verified 03/16/18 14:30) Unknown UNSURE OF OTHER ALLERGIES Dinhjnq-Jvs-Buj Reductase Inhibitor Adverse Reaction (Verified 03/16/18 14:35) Unknown cefepime Adverse Reaction (Uncoded 03/16/18 14:35) Unknown glyberide Adverse Reaction (Uncoded 03/16/18 14:35) Unknown Home Medications: Ambulatory Orders Medication Instructions Recorded Aspirin [Aspirin, Baby] 81 mg PO DAILY@0800 11/08/13 Atorvastatin Calcium [Lipitor] 40 mg PO QHS 11/08/13 Cholecalciferol (Vitamin D3) 3,000 unit PO DAILY 11/08/13 [Vitamin D3] Clopidogrel Bisulfate [Plavix] 75 mg PO DAILY 11/08/13 Multivitamins,Ther W-Minerals 1 tab PO DAILY 11/08/13 [Multivitamin With Minerals] Omeprazole [Prilosec] 20 mg PO QHS 02/28/18 Tamsulosin HCl [Flomax] 0.4 mg PO QHS 02/28/18 Famotidine [Pepcid] 20 mg PO BID tab 03/03/18 Furosemide [Lasix] 40 mg PO BID #0 03/03/18 Insulin Detemir [Levemir FlexPen] 5 units SC DAILY insuln.pen 03/03/18 Insulin Detemir [Levemir FlexPen] 5 units SC QHS insuln.pen 03/03/18 Insulin Lispro [Humalog KwikPen] See Protocol SC ACHS insuln.pen 03/03/18 Magnesium Oxide [Mag-Ox 400] 400 mg PO BID tab 03/03/18 Metolazone [Zaroxolyn] 2.5 mg PO DAILY tab 03/03/18 Venlafaxine XR [Effexor Xr] 37.5 mg PO DAILY cap 03/03/18 carvedilol 12.5 mg tablet 12.5 mg PO BID 03/16/18 oxycodone 5 mg capsule 5 mg PO ONCE PRN 03/16/18 potassium chloride ER 20 mEq 40 meq PO TID tab 03/17/18 tablet,extended release(part/cryst) Smoking Status: Current every day smoker Review of Systems Constitutional: Denies: Anorexia, Malaise Eyes: Denies: Blurred vision, Redness HEENT: Denies: Difficulty Hearing, Difficulty Swallowing Cardiovascular: Denies: Chest Pain Respiratory: Denies: Hemoptysis Gastrointestinal: Denies: Abdominal Pain, Hematemesis, Vomiting Skin: Denies: Jaundice - Physical Exam Vital Signs Temp Pulse Resp BP 96.0 F L 68 16 92/56 L 03/30/18 08:53 03/30/18 08:53 03/30/18 08:53 03/30/18 08:53 General: Alert, Oriented x3, Cooperative, No apparent distress HEENT: Atraumatic Oral: Moist Mucosa Neck: Supple Cardiovascular: Regular rate, Regular Rhythm Abdomen: Soft, Non Tender Skin: Ulcer/ Wound Wound Measurements and Assessment WC - Nurse 1 - General Ulcer Measurement Start: 03/30/18 08:37 Freq: Status: Active Protocol: Activity Type Activity Date Activity User E-Sign Co-Sign Detail Recorded Client Recorded Date Recorded By Document 03/30/18 08:53 [id number] 03/30/18 09:19 03/30/18 08:53 Wound Center Nurse 1 [Ulcer Assessment] #5 RIGHT ELBOW -Combined with other wound No -Current Size (cm) - Length 1.1 -Current Size (cm) - Width 0.2 -Current Size (cm) - Depth 0 -Total Square Cm 0.22 -Photo Taken Yes -Epithelialization None Present -Tunneling No -Undermining/Tunneling No -Circular Undermining No -Classification - Thickness Full Thickness without Exposed Support Structure -Exudate Amt Small (1-33%) -Exudate Type Serosanguineous -Wound Margin Distinct, Outline Attached -Granulation Amt Medium (34-66%) -Granulation Quality [place] Red -Slough/Fibrin Yes -Necrosis Amt Medium (34-66%) -Necrotic Tissue Type Adherent Slough -Structure Exposed N/A -Texture (Tari-wound Skin Appearance) Friable -Moisture (Tari-wound Skin Appearance Assessed ) -Color (Tari-wound Skin Appearance) Assessed -Temperature (Tari-wound Skin No Abnormality Appearance) (Pt Warm) -Tenderness on Palpation (Tari-wound No Skin Appearance) -Ulcer Cleansing Rinsed/ Irrigated with Saline -Foul Odor after Cleansing No -Anesthetic Used 5% Lidocaine Gel #4 RIGHT HIP -Combined with other wound No -Current Size (cm) - Length 0.5 -Current Size (cm) - Width 0.6 -Current Size (cm) - Depth 0.1 -Total Square Cm 0.30 -Date of Last Picture (Recall this 03/30/18 field) -Photo Taken Yes -Epithelialization None Present -Tunneling No -Undermining/Tunneling No -Circular Undermining No -Exudate Amt Medium (34-66%) -Exudate Type Serosanguineous -Wound Margin Distinct, Outline Attached -Granulation Amt Small (1-33%) -Granulation Quality [place] -Slough/Fibrin Yes -Necrosis Amt Medium (34-66%) -Necrotic Tissue Type Adherent Slough -Texture (Tari-wound Skin Appearance) Assessed -Moisture (Tari-wound Skin Appearance Assessed ) -Color (Tari-wound Skin Appearance) Assessed -Temperature (Tari-wound Skin No Abnormality Appearance) (Pt Warm) -Tenderness on Palpation (Tari-wound No Skin Appearance) -Ulcer Cleansing Rinsed/ Irrigated with Saline -Foul Odor after Cleansing No -Anesthetic Used 5% Lidocaine Gel #3 SACRUM -Current Size (cm) - Length 3 -Current Size (cm) - Width 1.7 -Current Size (cm) - Depth 0.1 -Total Square Cm 5.1 -Date of Last Picture (Recall this 03/30/18 field) -Photo Taken Yes -Epithelialization None Present -Tunneling No -Undermining/Tunneling No -Circular Undermining No -Exudate Amt None Present (0 %) -Wound Margin Distinct, Outline Attached -Granulation Amt None Present (0 %) -Granulation Quality N/A -Slough/Fibrin Yes -Necrosis Amt None Present (0 %) -Necrotic Tissue Type Adherent Slough -Structure Exposed None/Limited to Skin Breakdown -Texture (Tari-wound Skin Appearance) No Abnormality Assessed -Moisture (Tari-wound Skin Appearance No Abnormality ) Assessed -Color (Tari-wound Skin Appearance) Assessed Ecchymosis Erythema -Temperature (Tari-wound Skin No Abnormality Appearance) (Pt Warm) -Tenderness on Palpation (Tari-wound No Skin Appearance) -Ulcer Cleansing Rinsed/ Irrigated with Saline -Foul Odor after Cleansing No -Anesthetic Used 5% Lidocaine Gel #2 RIGHT ANTERIOR LE -Combined with other wound No -Date of Last Picture (Recall this 03/30/18 field) -Photo Taken Yes -Epithelialization None Present -Tunneling No -Undermining/Tunneling No -Circular Undermining No -Exudate Amt Small (1-33%) -Exudate Type Serosanguineous -Wound Margin Distinct, Outline Attached -Granulation Amt None Present (0 %) -Granulation Quality N/A -Slough/Fibrin Yes -Necrosis Amt Medium (34-66%) -Necrotic Tissue Type Eschar -Texture (Tari-wound Skin Appearance) No Abnormality Assessed -Moisture (Tari-wound Skin Appearance Assessed ) Dry/Scaly -Color (Tari-wound Skin Appearance) No Abnormality Assessed -Temperature (Tari-wound Skin No Abnormality Appearance) (Pt Warm) -Tenderness on Palpation (Tari-wound No Skin Appearance) -Ulcer Cleansing Rinsed/ Irrigated with Saline -Foul Odor after Cleansing No -Anesthetic Used 5% Lidocaine Gel #1 RIGHT POST. LE -Combined with other wound No -Current Size (cm) - Length 4.0 -Current Size (cm) - Width 1.7 -Current Size (cm) - Depth 0 -Total Square Cm 6.80 -Photo Taken Yes -Epithelialization None Present -Tunneling No -Undermining/Tunneling No -Circular Undermining No -Exudate Amt Small (1-33%) -Exudate Type Serosanguineous -Wound Margin Distinct, Outline Attached -Granulation Amt Medium (34-66%) -Granulation Quality Red -Slough/Fibrin Yes -Necrosis Amt Medium (34-66%) -Necrotic Tissue Type Adherent Slough -Structure Exposed None/Limited to Skin Breakdown -Texture (Tari-wound Skin Appearance) Assessed -Moisture (Tari-wound Skin Appearance Assessed ) Maceration -Color (Tari-wound Skin Appearance) No Abnormality Assessed -Temperature (Tari-wound Skin No Abnormality Appearance) (Pt Warm) -Tenderness on Palpation (Tari-wound No Skin Appearance) -Ulcer Cleansing Rinsed/ Irrigated with Saline -Foul Odor after Cleansing No -Anesthetic Used 5% Lidocaine Gel [Edema Assessment] -Lower Limb Edema Present Yes -Right Calf (cm) 25.8 -Right Ankle (cm) 18 WC - Nurse 2 - General Ulcer CM Notes Start: 03/30/18 08:37 Freq: Status: Active Protocol: Activity Type Activity Date Activity User E-Sign Co-Sign Detail Recorded Client Recorded Date Recorded By Document 03/30/18 09:46 JACE [id number] 03/30/18 10:05 JACE 03/30/18 09:46 Wound Center Nurse 2 [Procedure/Treatment] #5 RIGHT ELBOW -Time 09:46 -Correct Patient Yes -Correct Side, Site, Position Yes -Correct Procedure Yes -Procedure Performed Yes -Type of Procedure Debridement -Clinical Debridement Subcutaneous -Post Debridement Size (cm) - Length 1.5 -Post Debridement Size (cm) - Width 1.3 -Post Debridement Size (cm) - Depth 0.1 -Total Square Cm 1.95 -Wound/Ulcer Outcome Not Healed -Ulcer Cleansing Rinsed/ Irrigated with Saline -Foul Odor after Cleansing No -Bioengineered Tissue No -Topical Lidocaine (%) 4 -Lidocaine (ml) 5 -Bleeding Controlled with NA -Treatment Response Procedure Tolerated Well #4 RIGHT HIP -Time 09:56 -Correct Patient Yes -Correct Side, Site, Position Yes -Correct Procedure Yes -Procedure Performed Yes -Type of Procedure Debridement -Clinical Debridement Subcutaneous -Post Debridement Size (cm) - Length 1.0 -Post Debridement Size (cm) - Width 0.8 -Post Debridement Size (cm) - Depth 0.1 -Total Square Cm 0.80 -Wound/Ulcer Outcome Not Healed -Ulcer Cleansing Rinsed/ Irrigated with Saline -Foul Odor after Cleansing No -Bioengineered Tissue No -Topical Lidocaine (%) 4 -Lidocaine (ml) 5 -Bleeding Controlled with NA -Treatment Response Procedure Tolerated Well #3 SACRUM -Time 09:51 -Correct Patient Yes -Correct Side, Site, Position Yes -Correct Procedure Yes -Procedure Performed Yes -Type of Procedure Debridement -Clinical Debridement Subcutaneous -Post Debridement Size (cm) - Length 5.5 -Post Debridement Size (cm) - Width 3.0 -Post Debridement Size (cm) - Depth 0.1 -Total Square Cm 16.50 -Wound/Ulcer Outcome Not Healed -Ulcer Cleansing Rinsed/ Irrigated with Saline -Foul Odor after Cleansing Yes -Bioengineered Tissue No -Topical Lidocaine (%) 4 -Lidocaine (ml) 5 -Bleeding Controlled with NA -Treatment Response Procedure Tolerated Well #2 RIGHT ANTERIOR LE -Time 09:48 -Correct Patient Yes -Correct Side, Site, Position Yes -Correct Procedure Yes -Procedure Performed Yes -Type of Procedure Debridement -Clinical Debridement Subcutaneous -Post Debridement Size (cm) - Length 2.8 -Post Debridement Size (cm) - Width 0.8 -Post Debridement Size (cm) - Depth 0.1 -Total Square Cm 2.24 -Wound/Ulcer Outcome Not Healed -Ulcer Cleansing Rinsed/ Irrigated with Saline -Foul Odor after Cleansing No -Bioengineered Tissue No -Topical Lidocaine (%) 4 -Lidocaine (ml) 5 -Bleeding Controlled with NA -Treatment Response Procedure Tolerated Well #1 RIGHT POST. LE -Time 09:49 -Correct Patient Yes -Correct Side, Site, Position Yes -Correct Procedure Yes -Procedure Performed Yes -Type of Procedure Debridement -Clinical Debridement Subcutaneous -Post Debridement Size (cm) - Length 4.0 -Post Debridement Size (cm) - Width 1.7 -Post Debridement Size (cm) - Depth 0.1 -Total Square Cm 6.80 -Wound/Ulcer Outcome Not Healed -Ulcer Cleansing Rinsed/ Irrigated with Saline -Foul Odor after Cleansing No -Bioengineered Tissue No -Topical Lidocaine (%) 4 -Lidocaine (ml) 5 -Bleeding Controlled with NA -Treatment Response Procedure Tolerated Well [See Physician Procedure note for Specifics] Pain Scale: 0-10 Numeric [Pain] -Is Patient Pain Free? Yes Neurological: Cranial nerves II-XII grossly intact Psych/Mental Status: Normal Affect Debridement Note Post-Debridement Measurements/Treatment WC - Nurse 2 - General Ulcer CM Notes Start: 03/30/18 08:37 Freq: Status: Active Protocol: Activity Type Activity Date Activity User E-Sign Co-Sign Detail Recorded Client Recorded Date Recorded By Document 03/30/18 09:46 JACE [id number] 03/30/18 10:05 JACE 03/30/18 09:46 Wound Center Nurse 2 #5 RIGHT ELBOW -Time 09:46 -Correct Patient Yes -Correct Side, Site, Position Yes -Correct Procedure Yes -Procedure Performed Yes -Type of Procedure Debridement -Clinical Debridement Subcutaneous -Post Debridement Size (cm) - Length 1.5 -Post Debridement Size (cm) - Width 1.3 -Post Debridement Size (cm) - Depth 0.1 -Total Square Cm 1.95 -Wound/Ulcer Outcome Not Healed -Ulcer Cleansing Rinsed/ Irrigated with Saline -Foul Odor after Cleansing No -Bioengineered Tissue No -Topical Lidocaine (%) 4 -Lidocaine (ml) 5 -Bleeding Controlled with NA -Treatment Response Procedure Tolerated Well #4 RIGHT HIP -Time 09:56 -Correct Patient Yes -Correct Side, Site, Position Yes -Correct Procedure Yes -Procedure Performed Yes -Type of Procedure Debridement -Clinical Debridement Subcutaneous -Post Debridement Size (cm) - Length 1.0 -Post Debridement Size (cm) - Width 0.8 -Post Debridement Size (cm) - Depth 0.1 -Total Square Cm 0.80 -Wound/Ulcer Outcome Not Healed -Ulcer Cleansing Rinsed/ Irrigated with Saline -Foul Odor after Cleansing No -Bioengineered Tissue No -Topical Lidocaine (%) 4 -Lidocaine (ml) 5 -Bleeding Controlled with NA -Treatment Response Procedure Tolerated Well #3 SACRUM -Time 09:51 -Correct Patient Yes -Correct Side, Site, Position Yes -Correct Procedure Yes -Procedure Performed Yes -Type of Procedure Debridement -Clinical Debridement Subcutaneous -Post Debridement Size (cm) - Length 5.5 -Post Debridement Size (cm) - Width 3.0 -Post Debridement Size (cm) - Depth 0.1 -Total Square Cm 16.50 -Wound/Ulcer Outcome Not Healed -Ulcer Cleansing Rinsed/ Irrigated with Saline -Foul Odor after Cleansing Yes -Bioengineered Tissue No -Topical Lidocaine (%) 4 -Lidocaine (ml) 5 -Bleeding Controlled with NA -Treatment Response Procedure Tolerated Well #2 RIGHT ANTERIOR LE -Time 09:48 -Correct Patient Yes -Correct Side, Site, Position Yes -Correct Procedure Yes -Procedure Performed Yes -Type of Procedure Debridement -Clinical Debridement Subcutaneous -Post Debridement Size (cm) - Length 2.8 -Post Debridement Size (cm) - Width 0.8 -Post Debridement Size (cm) - Depth 0.1 -Total Square Cm 2.24 -Wound/Ulcer Outcome Not Healed -Ulcer Cleansing Rinsed/ Irrigated with Saline -Foul Odor after Cleansing No -Bioengineered Tissue No -Topical Lidocaine (%) 4 -Lidocaine (ml) 5 -Bleeding Controlled with NA -Treatment Response Procedure Tolerated Well #1 RIGHT POST. LE -Time 09:49 -Correct Patient Yes -Correct Side, Site, Position Yes -Correct Procedure Yes -Procedure Performed Yes -Type of Procedure Debridement -Clinical Debridement Subcutaneous -Post Debridement Size (cm) - Length 4.0 -Post Debridement Size (cm) - Width 1.7 -Post Debridement Size (cm) - Depth 0.1 -Total Square Cm 6.80 -Wound/Ulcer Outcome Not Healed -Ulcer Cleansing Rinsed/ Irrigated with Saline -Foul Odor after Cleansing No -Bioengineered Tissue No -Topical Lidocaine (%) 4 -Lidocaine (ml) 5 -Bleeding Controlled with NA -Treatment Response Procedure Tolerated Well Pain Scale: 0-10 Numeric Is Patient Pain Free? Yes Wound debrided: Right fletcher Wound Grade/Stage: Harrell I Type of Debridement: Excisional debridement Anesthesia Used: 5% Lidocaine Gel Depth: Down to and including healthy tissue, in the subcutaneous layer Percentage of wound debrided: 100 Instrument Used: 5mm curette Tissue Removed: Slough and devitalized tissue Severity: Fat Layer Exposed Amount of bleeding with debridement: Mild Bleeding Controlled with: Pressure Patient tolerated procedure well - Additional Wound Wound debrided: Right Calf ( Posterior LE ) Wound Grade/Stage: Harrell II Type of Debridement: Excisional debridement Anesthesia Used: 4% Lidocaine Solution Depth: Down to and including healthy tissue, in the subcutaneous layer Percentage of wound debrided: 100 Instrument Used: 5mm curette Tissue Removed: Slough and devitalized tissue Severity: Fat Layer Exposed Amount of bleeding with debridement: Mild Bleeding Controlled with: Pressure Patient tolerated procedure: Patient tolerated procedure well - Additional Wound Wound debrided: Right Elbow Wound Grade/Stage: Stage III Type of Debridement: Excisional debridement Anesthesia Used: 4% Lidocaine Solution Depth: Down to and including healthy tissue, in the subcutaneous layer Percentage of wound debrided: 100 Instrument Used: 5mm curette Tissue Removed: Slough and devitalized tissue Severity: Fat Layer Exposed Amount of bleeding with debridement: Mild Bleeding Controlled with: Pressure Patient tolerated procedure: Patient tolerated procedure well - Additional Wound Wound debrided: Sacral ulcer Wound Grade/Stage: Stage III Type of Debridement: Excisional debridement Anesthesia Used: 4% Lidocaine Solution Depth: Down to and including healthy tissue, in the subcutaneous layer Percentage of wound debrided: 100 Instrument Used: 5mm curette Tissue Removed: SLough and devitalized tissue Severity: Fat Layer Exposed Amount of bleeding with debridement: Mild Bleeding Controlled with: Pressure Patient tolerated procedure: Patient tolerated procedure well - Additional Wound Wound debrided: Right buttock ulcer Wound Grade/Stage: Stage II Type of Debridement: Excisional debridement Anesthesia Used: 4% Lidocaine Solution Depth: Down to and including healthy tissue, in the subcutaneous layer Percentage of wound debrided: 100 Instrument Used: 5mm curette Tissue Removed: SLough and devitalized tissue Severity: Fat Layer Exposed Amount of bleeding with debridement: Mild Bleeding Controlled with: Pressure Patient tolerated procedure: Patient tolerated procedure well Assessment/Plan Active Problems (Last Reviewed 03/16/18 @ 15:24 by Titus Mai MD) Ulcer of right lower extremity with fat layer exposed (Chronic) Decubitus ulcer of right elbow, stage 3 (Chronic) Sacral decubitus ulcer, stage III (Chronic) Decubitus ulcer of right buttock, stage 3 (Chronic) Assessment: As stated above. Plan: As stated above Mr. Bocanegra returns to the wound center with different ulcers with different etiologies. Debridement of all ulcers were done as documented above. Procedure was well-tolerated. Apply Fibracol with Adaptic over top to all ulcers. Pressure relief discussed. He will probably benefit from a low loss air mattress. Zinc oxide cream to buttocks/periwound area. Elevate lower extremity when seated. Follow-up in 1 week. Advised to call with any concerns or questions. This note was generated with [employer] software. It may contain incorrect words, spelling, and punctuation that were not noted in checking the note before signing.
[2018-04-06 08:25] VITALS: BP 102/78; PULSE 98; RESP 16; TEMP 35.6; BMI 22.4
--- NOTE | 2018-04-06 09:11 | PCM.WC.PN ---
(1) Ulcer of right lower extremity with fat layer exposed Status: Chronic Current Visit: Yes Code(s): L97.912 - Non-pressure chronic ulcer of unspecified part of right lower leg with fat layer exposed (2) Decubitus ulcer of right elbow, stage 3 Status: Chronic Current Visit: Yes Code(s): L89.013 - Pressure ulcer of right elbow, stage 3 (3) Sacral decubitus ulcer, stage III Status: Chronic Current Visit: Yes Code(s): L89.153 - Pressure ulcer of sacral region, stage 3 (4) Decubitus ulcer of right buttock, stage 3 Status: Chronic Current Visit: Yes Code(s): L89.313 - Pressure ulcer of right buttock, stage 3 (5) Peripheral vascular occlusive disease Status: Chronic Current Visit: No Code(s): I73.9 - Peripheral vascular disease, unspecified Comment: LLE Angioplasty and stent (6) DM2 (diabetes mellitus, type 2) Status: Chronic Current Visit: No Code(s): E11.9 - Type 2 diabetes mellitus without complications Type of Wound Date of Service: 04/06/18 Chief Complaint: Right lower extremity ulcers. Right elbow ulcers. Sacral and Buttock ulcers. History of Wound: Mr. Bocanegra is a 62-year-old significant past medical history who presented to the wound center due to lower extremity, elbow and decubitus ulcers. He was recently admitted to the hospital and managed for right lower extremity cellulitis after his abscesses stay, he was discharged to a retirement and that he developed decubitus ulcer. He has had some wound care at the retirement however wound has shown no improvement. He denies any significant discharge from the wound. He also denies chills or fever at this time. Progress of Wound: Right anterior leg ulcer has healed. Decubitus ulcers appear to have worsened. - Physical Exam Vital Signs Temp Pulse Resp BP 96.0 F L 98 16 102/78 04/06/18 08:25 04/06/18 08:25 04/06/18 08:25 04/06/18 08:25 General: Alert, Oriented x3, Cooperative, No apparent distress HEENT: Atraumatic Oral: Moist Mucosa Neck: Supple Lungs: Normal air movement Abdomen: Non Tender Extremities: No cyanosis Skin: Ulcer/ Wound Wound Measurements and Assessment WC - Nurse 1 - General Ulcer Measurement Start: 03/30/18 08:37 Freq: Status: Active Protocol: Activity Type Activity Date Activity User E-Sign Co-Sign Detail Recorded Client Recorded Date Recorded By Document 04/06/18 08:25 [id number] 04/06/18 08:38 04/06/18 08:25 Wound Center Nurse 1 [Ulcer Assessment] #5 RIGHT ELBOW -Current Size (cm) - Length 1.3 -Current Size (cm) - Width 1.4 -Current Size (cm) - Depth 0.1 -Total Square Cm 1.82 -Photo Taken No #4 RIGHT HIP -Combined with other wound No -Current Size (cm) - Length 1.5 -Current Size (cm) - Width 0.5 -Current Size (cm) - Depth 0.1 -Total Square Cm 0.75 -Photo Taken No -Exudate Amt Medium (34-66%) -Exudate Type Serosanguineous -Wound Margin Distinct, Outline Attached -Granulation Amt Small (1-33%) -Granulation Quality Dinosaur Red -Slough/Fibrin Yes -Necrosis Amt None Present (0 %) -Necrotic Tissue Type Adherent Slough -Texture (Tari-wound Skin Appearance) Assessed -Moisture (Tari-wound Skin Appearance No Abnormality ) Assessed -Color (Tari-wound Skin Appearance) Assessed -Temperature (Tari-wound Skin No Abnormality Appearance) (Pt Warm) -Tenderness on Palpation (Tari-wound Yes Skin Appearance) -Ulcer Cleansing Wound Cleanser -Foul Odor after Cleansing No -Anesthetic Used 4% Lidocaine Solution #3 SACRUM -Combined with other wound No -Current Size (cm) - Length 4.5 -Current Size (cm) - Width 3.7 -Current Size (cm) - Depth 0.1 -Total Square Cm 16.65 -Epithelialization None Present -Tunneling No -Undermining/Tunneling No -Circular Undermining No -Exudate Type Serosanguineous -Wound Margin Distinct, Outline Attached -Granulation Amt Medium (34-66%) -Granulation Quality Dinosaur Red -Necrosis Amt None Present (0 %) -Necrotic Tissue Type Adherent Slough -Moisture (Tari-wound Skin Appearance Assessed ) -Color (Tari-wound Skin Appearance) Assessed -Temperature (Tari-wound Skin No Abnormality Appearance) (Pt Warm) -Tenderness on Palpation (Tari-wound No Skin Appearance) -Ulcer Cleansing Wound Cleanser -Foul Odor after Cleansing No -Anesthetic Used 4% Lidocaine Solution #2 RIGHT ANTERIOR LE -Combined with other wound No -Current Size (cm) - Length 0.1 -Current Size (cm) - Width 0.1 -Current Size (cm) - Depth 0.1 -Total Square Cm 0.01 -Epithelialization Large 67-100% -Tunneling No -Undermining/Tunneling No -Circular Undermining No -Exudate Amt Small (1-33%) -Exudate Type Serosanguineous -Wound Margin Distinct, Outline Attached -Granulation Amt Medium (34-66%) -Granulation Quality Dinosaur Red -Slough/Fibrin No -Necrosis Amt None Present (0 %) -Temperature (Tari-wound Skin No Abnormality Appearance) (Pt Warm) -Tenderness on Palpation (Tari-wound Yes Skin Appearance) -Ulcer Cleansing Wound Cleanser -Foul Odor after Cleansing No -Anesthetic Used 4% Lidocaine Solution #1 RIGHT POST. LE -Combined with other wound No -Current Size (cm) - Length 3.5 -Current Size (cm) - Width 1.5 -Current Size (cm) - Depth 0.1 -Total Square Cm 5.25 -Photo Taken No -Exudate Amt Small (1-33%) -Exudate Type Serosanguineous -Granulation Amt Large (67-100%) -Granulation Quality Red -Slough/Fibrin No -Necrosis Amt None Present (0 %) -Necrotic Tissue Type Adherent Slough -Structure Exposed None/Limited to Skin Breakdown -Texture (Tari-wound Skin Appearance) Assessed -Moisture (Tari-wound Skin Appearance Assessed ) Dry/Scaly -Color (Tari-wound Skin Appearance) Assessed -Temperature (Tari-wound Skin No Abnormality Appearance) (Pt Warm) -Tenderness on Palpation (Tari-wound Yes Skin Appearance) -Ulcer Cleansing Wound Cleanser -Foul Odor after Cleansing No -Anesthetic Used 4% Lidocaine Solution [Edema Assessment] -Lower Limb Edema Present NA Musculoskeletal: No Muscle Wasting Neurological: Cranial nerves II-XII grossly intact Psych/Mental Status: Normal Affect Debridement Note Post-Debridement Measurements/Treatment WC - Nurse 2 - General Ulcer CM Notes Start: 03/30/18 08:37 Freq: Status: Active Protocol: Activity Type Activity Date Activity User E-Sign Co-Sign Detail Recorded Client Recorded Date Recorded By Document 03/30/18 09:46 JACE [id number] 03/30/18 10:05 JACE 03/30/18 09:46 Wound Center Nurse 2 #5 RIGHT ELBOW -Time 09:46 -Correct Patient Yes -Correct Side, Site, Position Yes -Correct Procedure Yes -Procedure Performed Yes -Type of Procedure Debridement -Clinical Debridement Subcutaneous -Post Debridement Size (cm) - Length 1.5 -Post Debridement Size (cm) - Width 1.3 -Post Debridement Size (cm) - Depth 0.1 -Total Square Cm 1.95 -Wound/Ulcer Outcome Not Healed -Ulcer Cleansing Rinsed/ Irrigated with Saline -Foul Odor after Cleansing No -Bioengineered Tissue No -Topical Lidocaine (%) 4 -Lidocaine (ml) 5 -Bleeding Controlled with NA -Treatment Response Procedure Tolerated Well #4 RIGHT HIP -Time 09:56 -Correct Patient Yes -Correct Side, Site, Position Yes -Correct Procedure Yes -Procedure Performed Yes -Type of Procedure Debridement -Clinical Debridement Subcutaneous -Post Debridement Size (cm) - Length 1.0 -Post Debridement Size (cm) - Width 0.8 -Post Debridement Size (cm) - Depth 0.1 -Total Square Cm 0.80 -Wound/Ulcer Outcome Not Healed -Ulcer Cleansing Rinsed/ Irrigated with Saline -Foul Odor after Cleansing No -Bioengineered Tissue No -Topical Lidocaine (%) 4 -Lidocaine (ml) 5 -Bleeding Controlled with NA -Treatment Response Procedure Tolerated Well #3 SACRUM -Time 09:51 -Correct Patient Yes -Correct Side, Site, Position Yes -Correct Procedure Yes -Procedure Performed Yes -Type of Procedure Debridement -Clinical Debridement Subcutaneous -Post Debridement Size (cm) - Length 5.5 -Post Debridement Size (cm) - Width 3.0 -Post Debridement Size (cm) - Depth 0.1 -Total Square Cm 16.50 -Wound/Ulcer Outcome Not Healed -Ulcer Cleansing Rinsed/ Irrigated with Saline -Foul Odor after Cleansing Yes -Bioengineered Tissue No -Topical Lidocaine (%) 4 -Lidocaine (ml) 5 -Bleeding Controlled with NA -Treatment Response Procedure Tolerated Well #2 RIGHT ANTERIOR LE -Time 09:48 -Correct Patient Yes -Correct Side, Site, Position Yes -Correct Procedure Yes -Procedure Performed Yes -Type of Procedure Debridement -Clinical Debridement Subcutaneous -Post Debridement Size (cm) - Length 2.8 -Post Debridement Size (cm) - Width 0.8 -Post Debridement Size (cm) - Depth 0.1 -Total Square Cm 2.24 -Wound/Ulcer Outcome Not Healed -Ulcer Cleansing Rinsed/ Irrigated with Saline -Foul Odor after Cleansing No -Bioengineered Tissue No -Topical Lidocaine (%) 4 -Lidocaine (ml) 5 -Bleeding Controlled with NA -Treatment Response Procedure Tolerated Well #1 RIGHT POST. LE -Time 09:49 -Correct Patient Yes -Correct Side, Site, Position Yes -Correct Procedure Yes -Procedure Performed Yes -Type of Procedure Debridement -Clinical Debridement Subcutaneous -Post Debridement Size (cm) - Length 4.0 -Post Debridement Size (cm) - Width 1.7 -Post Debridement Size (cm) - Depth 0.1 -Total Square Cm 6.80 -Wound/Ulcer Outcome Not Healed -Ulcer Cleansing Rinsed/ Irrigated with Saline -Foul Odor after Cleansing No -Bioengineered Tissue No -Topical Lidocaine (%) 4 -Lidocaine (ml) 5 -Bleeding Controlled with NA -Treatment Response Procedure Tolerated Well Pain Scale: 0-10 Numeric Is Patient Pain Free? Yes Wound debrided: Right lower extremity posterior ( Calf ) Wound Grade/Stage: Stage II Type of Debridement: Excisional debridement Anesthesia Used: 4% Lidocaine Solution Depth: Down to and including healthy tissue, in the subcutaneous layer Percentage of wound debrided: 100 Instrument Used: 5mm curette Tissue Removed: Slough and devitalized tissue Severity: Fat Layer Exposed Amount of bleeding with debridement: Mild Bleeding Controlled with: Pressure Patient tolerated procedure well - Additional Wound Wound debrided: Right elbow Wound Grade/Stage: Stage III Type of Debridement: Excisional debridement Anesthesia Used: 4% Lidocaine Solution Depth: Down to and including healthy tissue, in the subcutaneous layer Percentage of wound debrided: 100 Instrument Used: 3mm curette Tissue Removed: Slough and devitalized tissue. Severity: Fat Layer Exposed Amount of bleeding with debridement: Mild Bleeding Controlled with: Pressure Patient tolerated procedure: Patient tolerated procedure well - Additional Wound Wound debrided: Sacral ulcer Wound Grade/Stage: Stage III Type of Debridement: Excisional debridement Anesthesia Used: 4% Lidocaine Solution Depth: Down to and including healthy tissue, in the subcutaneous layer Percentage of wound debrided: 100 Instrument Used: 5mm curette Tissue Removed: Slough and devitalized tissue Severity: Fat Layer Exposed Amount of bleeding with debridement: Mild Bleeding Controlled with: Pressure Patient tolerated procedure: Patient tolerated procedure well - Additional Wound Wound debrided: Right Hip Wound Grade/Stage: Stage II Type of Debridement: Excisional debridement Anesthesia Used: 4% Lidocaine Solution Depth: Down to and including healthy tissue, in the subcutaneous layer Percentage of wound debrided: 100 Instrument Used: 5mm curette Tissue Removed: Slough and devitalized tissue Severity: Fat Layer Exposed Amount of bleeding with debridement: Mild Bleeding Controlled with: Pressure Patient tolerated procedure: Patient tolerated procedure well Assessment/Plan Active Problems (Last Reviewed 03/16/18 @ 15:24 by Titus Mai MD) Ulcer of right lower extremity with fat layer exposed (Chronic) Decubitus ulcer of right elbow, stage 3 (Chronic) Sacral decubitus ulcer, stage III (Chronic) Decubitus ulcer of right buttock, stage 3 (Chronic) Assessment: As stated above. Plan: Right anterior leg ulcer has healed however other ulcers with no significant improvement and worening of the decubitus ulcrs noted. Debridement of all ulcers were done as documented above. Procedure was well-tolerated. Switch to Unique to all ulcers with adaptic over top. Pressure relief discussed. He will probably benefit from a low loss air mattress. Zinc oxide cream to buttocks/periwound area. Elevate lower extremity when seated. Follow-up in 1 week. Advised to call with any concerns or questions. This note was generated with [employer] software. It may contain incorrect words, spelling, and punctuation that were not noted in checking the note before signing.
== END 2018-04-19 23:59 ==
LOC: WC 08:15
PROVIDERS: PCP Family Medicine; Visit Provider Internal Medicine
DX: E11.622 Type 2 diabetes mellitus with other skin ulcer (principal); E11.51 Type 2 diabetes mellitus with diabetic peripheral angiopathy without gangrene; L89.013 Pressure ulcer of right elbow, stage 3; L89.153 Pressure ulcer of sacral region, stage 3; L89.313 Pressure ulcer of right buttock, stage 3; L97.212 Non-pressure chronic ulcer of right calf with fat layer exposed; I27.21 Secondary pulmonary arterial hypertension; E78.5 Hyperlipidemia, unspecified; J44.9 Chronic obstructive pulmonary disease, unspecified; I25.10 Atherosclerotic heart disease of native coronary artery without angina pectoris; Z95.810 Presence of automatic (implantable) cardiac defibrillator; Z79.899 Other long term (current) drug therapy; Z79.82 Long term (current) use of aspirin; Z79.4 Long term (current) use of insulin; Z79.02 Long term (current) use of antithrombotics/antiplatelets; F17.200 Nicotine dependence, unspecified, uncomplicated
CPT/HCPCS: 11042; 11045; 99213; G0463